=== PATIENT | male | born 1940 | race Caucasian/White ===

== ENCOUNTER 2019-03-11 05:25 | Inpatient (IN) | payer MEDICARE, OTHER, SELFPAY ==
--- NOTE | 2019-02-12 11:00 | HP.PCM_ITS ---
History and Physical DATE OF SURGERY: 03/11/2019 SCHEDULED PROCEDURE: Right anatomic shoulder arthroplasty versus reverse total shoulder arthroplasty HISTORY OF PRESENT ILLNESS: This is a 78-year-old male whose been having ongoing pain in his right shoulder for over one year. Patient has had multiple falls in the past. Pain can reach as high as an 8/10 with activity. Most of his pain is associated with overhead activity. He does get clicking sensation in the right shoulder with range of motion. He does notice weakness when compared to his other nondominant left shoulder. Pain is primarily over the anterior and lateral right shoulder. Pain does wake him at night. He is unable to lay on his right side. Patient has difficult time with activities of daily living including getting dressed and undressed due to the pain in the shoulder. Patient currently denies any chest pain, shortness of breath, fevers chills, recent infections. Patient has tried oral medications without significant relief in symptoms. After failing conservative measures and discussing treatment options with Dr. Cory Berg, the patient does wish to proceed with a right anatomic total shoulder arthroplasty versus reverse total shoulder arthroplasty. We are obtaining surgical clearance from patient's primary care physician. REVIEW OF SYSTEMS: ROS: Const: Reports change in appetite, hard of hearing and weight change. Denies fever. CV: Denies chest pain, heart murmur and irregular heartbeat. Resp: Denies cough, pneumonia, SOB, tuberculosis and wheezing. GI: Denies constipation, diarrhea, difficulty swallowing, heartburn, nausea, bloody stools and vomiting. : Urinary: denies incontinence. Musculo: Reports limp, trouble walking and weakness, but denies leg swelling. Skin: Denies Raynaud's, history of shingles and tattoo. Neuro: Denies ambulatory dysfunction, dizziness, numbness/tingling and tremor. Psych: Reports stress, but denies anxiety and insomnia. Chet/Lymph: Denies anemia, bleeding/bruising tendency and past transfusion. Reviewed, no changes. PAST MEDICAL HISTORY: Advance Care Plan: No Advance Directives Effective Date: 09/19/2018 PMH: Medical Problems: Arthritis, Hypercholesterolemia, Osteoporosis Accidents: None Surgical Hx: Spinal Lumbar Fusion - (2017) [facility] LT THR - (05/2017) Anesthesia Complications: None Assistive Devices: None Reviewed, no changes. 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 Personal Habits: Cigarette Use: Never Smoked Cigarettes.Alcohol: Denies use.Drug Use: Denies Use.Enjoy Exercising: Daily. Reviewed, no changes. VITALS: Ht: 65.5 Wt: 164lb Wt k.390 BMI: 26.9 BP: 124/78 Pulse: 68 Resp: 16 T: 98.2 T: 36.8C ALLERGIES: Tramadol MEDICATIONS: Atorvastatin Calcium 40 mg 1 by mouth every day, Naproxen 500 mg 1 by mouth twice a day as needed with food PRE-OP EXAM: General appearance:NORMAL Other: Eyes: Conjunctivae and lids: NORMAL Pupils: ERR Ears, Nose, Mouth, and Throat: NORMAL Other: Inspection of lips, teeth and gums: NORMAL Other: Neck: Examination of neck: no masses noted. Respiratory: Assessment of respiratory effort: NORMAL Other: Auscultation of lungs: clear to auscultation no wheezes, rhonchi or rales. Cardiovascular: Auscultation of heart: regular rate and rhythm, no murmurs, gallops or rubs. Gastrointestinal: Exam of abdomen: soft, nontender, nondistended bowel sounds present. PHYSICAL EXAMINATION: On exam patient's right shoulder scope to touch without erythema. There is tenderness to palpation diffusely over the lateral right shoulder. Mild pain over the a.c. joint. Range of motion: Active forward elevation 130 on the right and 150 on the left, internal rotation T7 on the left and L1 on the right, external rotation 25 on the right and 35 on the left. Patient does have scapular dyskinesia on the right. Good supraspinatus strength bilaterally. Sensation intact to light touch. Neurovascularly intact. IMAGING STUDIES: Previous x-rays of the right shoulder reveal complete loss of humeral joint spac e with inferior osteophytes on the humeral head and inferior glenoid with subchondral sclerosis, subchondral cyst formation consistent with severe glenohumeral osteoarthritis. IMPRESSION: 1. Severe right shoulder glenohumeral osteoarthritis 2. Hypercholesterolemia PLAN: Dr. Cory Berg did discuss and review with the patient all treatment options including surgical versus nonsurgical options. Patient does wish to proceed with the above-stated procedure. Potential risks, benefits, and complications of the procedure were discussed in detail including but not limited to , infection, nerve and blood vessel damage, persistent pain, numbness, tingling, paresthesias, blood clot, pulmonary embolism, and requirement for possible further surgery. The patient expressed full understanding and has no further questions for the doctor. Patient does agree to proceed with the above-stated procedure and has signed the surgery consent form. This dictation was created using voice recognition software. Phonetic and/or grammatical errors may exist.. ___ I have re-examined the patient. There are no clinical changes since date of exam. ___ See progress notes for changes. ___ Dictated on admission Date: Time: Signature:
[2019-02-25 11:15] VITALS: BP 129/84; PULSE 62; RESP 17; TEMP 36.7; O2SAT 96; BMI 26.6
--- NOTE | 2019-02-25 11:36 | SDCEKG_ITS ---
Test Reason : Blood Pressure : / mmHG Vent. Rate : 061 BPM Atrial Rate : 061 BPM P-R Int : 170 ms QRS Dur : 086 ms QT Int : 394 ms P-R-T Axes : 056 -44 010 degrees QTc Int : 396 ms Normal sinus rhythm Left axis deviation Abnormal ECG Confirmed by TOBY HEATON ([id number]), acquisitions editor JOSE COOLEY ([id number]) on 03/05/2019 9:27:37 AM Referred By: Cory Berg Confirmed By:TOBY HEATON
[2019-02-25 12:02] LABS: Absolute Lymphocyte Count 2.06 X10^3/ul (0.83-4.51); Absolute Neutrophil Count 4.4 X10^3/uL (2.0-7.7); Basophil# 0.02 X10^3/uL; Basophil% 0.3 % (0-1); Eosinophil# 0.15 X10^3/uL; Eosinophils% 2.1 % (0-5); Hematocrit 41.1 % (40-54); Hemoglobin 14.1 g/dl (13.0-16.5); Lymphocyte # 2.06 X10^3/ul (4.0); Lymphocyte % 28.5 % (19-41); Mean Corp Hgb Conc 34.3 g/gl (32-36); Mean Corpuscular Hgb 32.9 pg (27.0-32.0); Mean Platelet Vol. 9.4 fl (6.2-12.0); Monocyte% 8.3 % (0-10); Neutrophil # 4.39 X10^3/uL (2.7-7.7); Neutrophil % 60.5 % (47-70); POSITIVE COUNT NO; POSITIVE DIFFERENTIAL NO; POSITIVE MORPHOLOGY NO; Platelet Count 229 K/mm3 (150-450); RBC Distribution Width CV 13.8 % (11.6-14.6); RBC Distribution Width SD 46.9 fl (35.1-43.9); Red Blood Count 4.28 M/mm3 (4.6-6.2); White Blood Count 7.2 K/mm3 (4.4-11.0)
[2019-02-25 12:24] LABS: Anion Gap 5 (5-15); BUN 25 mg/dL (7-18); Calcium,Total 8.4 mg/dL (8.5-10.1); Chloride 110 mmol/L (98-107); Creatinine, Serum 0.96 mg/dL (0.70-1.30); EST Glomerular Filtration Rate 80 mL/min (>60); Est Glom Filt Rate - Afr Amer 97 mL/min (>60); Estimated Creatinine Clearance 58.33 ml/min; Glucose 84 mg/dL (74-106); Potassium 3.9 mmol/L (3.5-5.1); Sodium Level 142 mmol/L (136-145)
[2019-03-11] VITALS (11 sets, daily range): BP systolic 116–160; BP diastolic 57–103; PULSE 70–97; RESP 16–18; TEMP 35.8–36.8; O2SAT 94–99; BMI 26.6
[2019-03-11] MEDS: Celecoxib 200 MG Capsule 400 MG PO (06:01)
[2019-03-11] MEDS: oxyCODONE HCl Cr 10 MG Tablet PO (06:01)
[2019-03-11] MEDS: Acetaminophen 500 MG Tablet 1000 MG PO ×2 (06:02→21:15)
[2019-03-11] MEDS: Lactated Ringers 1,000 ML 999 ML IV ×2 (06:30→08:00)
--- NOTE | 2019-03-11 07:05 | RAD_ITS ---
STUDY: X-RAY - RIGHT SHOULDER REASON FOR EXAM: Male, 79 years old. Right shoulder replacement. TECHNIQUE: 3 view(s) of the shoulder. COMPARISON: None. FINDINGS: The patient is status post right shoulder replacement. There is good alignment. Normal acromioclavicular joint. Normal acromion. Normal humeral head and visualized proximal humerus. Postoperative soft tissue changes. Normal visualized pulmonary apex. RAD/Shoulder min 2 Views IMPRESSION: Status post right shoulder replacement. There is good alignment. Postoperative soft tissue changes. Electronically Signed: Emilinao Raza, at 13:11 EDT , Service support ,
[2019-03-11] MEDS: Cefazolin 2 GM in 0.9% Normal Saline 100 ML IV (07:13)
--- NOTE | 2019-03-11 08:49 | OP.PCM_ITS ---
Report of Operation Date of Procedure: 03/11/19 Pre-Operative Diagnosis: Right shoulder primary glenohumeral osteoarthritis Post-Operative Diagnosis: Right shoulder primary glenohumeral osteoarthritis, With severe posterior glenoid wear Surgery/Procedure Performed:: right reverse total shoulder replacement Description of Surgical Findings:: Stable shoulder. Patient had severe posterior glenoid wear due to the retroversion and posterior glenoid where we elected to proceed with a reverse total shoulder replacement electrical equipment assembler: Miguelito Astudillo Type of Anesthesia:: General Anesthesiologist: Gene Mijares Special Medications: 2 g Ancef, 1 g TXA at incision, 1 g TXA closure, 10 mg Decadron, joint cocktail (5 mg Duramorph, 30 mL of 0.5% Ropivicaine, 1000 units of epinephrine, 30 mg of Toradol, Vancomycin during the procedure Specimen's removed: Bony resection Estimated Blood Loss (mL): 175 Fluids Replaced: 1200 ml crystalloid Description of Procedure: Components used 1. Pardeep reunion glenoid baseplate 2. [place] reunion 32+6 mm Glenosphere 3. [place] reunion 32mm, 4mm humeral liner 4. [place] reunion reverse TSA humeral adapter tray 4mm 5. Pardeep reunion humeral stem primary press-fit 15mm size Brief history/Operative indications: 79 yo m with history of right shoulder pain and severe primary glenohumeral osteoarthritis with glenoid wear. Patient failed conservative measures as mentioned in the H&P. After discussion of risk and benefits of reverse total shoulder replacement including but not limited to blood loss, DVTs, PEs, nerve vessel damage, infection, general risk of anesthesia including loss of life, instability and stiffness patient demonstrating understanding wish to proceed was able to sign informed consent. Medical clearance was obtained. Preoperatively we discussed a anatomic total shoulder replacement versus reverse if rotator cuff was compromised or severe posterior glenoid wear Procedure: On the date of the procedure, patient's R upper extremity was marked in the preoperative area. Patient was taken back to the operating room where they were placed on the table in the supine position. Anesthesia assumed control of the C-spine and airway, then administered anesthetic. All bony prominences were identified well-padded, the head was secured and the patient was placed in the beachchair position at about 35? inclination. Anesthesia remained in control of the C-spine airway throughout the remainder of the procedure. Patient was then appropriately fastened to the table and the R upper extremity was prepped in a sterile fashion. The surgeons then scrubbed. Upon reentering the room, the R upper extremity was draped in a sterile fashion and the incision was marked out. Timeout was called, everyone agreed upon the side, the site, the procedure to be performed, patient identity and antibiotics given. Incision was taken down through skin and subcutaneous tissue, fat down to fascia. The stripe of the deltopectoral interval and cephalic vein were identified and blunt dissection was used to retract the deltoid. The cephalic vein was retracted laterally. Clavipectoral fascia was then incised and a cobra retractor was placed in the wound. The proximal one third of the pectoralis major insertion was released. Pectoralis tendon insertion was used to tenodesed the biceps tendon which was identified in the bicipital groove. Tenodesis was done with #1 Vicryl. Proximally we followed the biceps tendon after transecting it into the rotator interval. The rotator interval was split and the arm was externally rotated. The split was 1 cm medial to the bicipital groove. Short bscapularis tendon was released using a lesser tuberosity osteotomy. We released down the anterior portion of the humeral head and a weiner elevator was used to release the inferior portion of the humeral head. The arm was externally rotated and the shoulder was dislocated. The humeral head cutting guide was used to make humeral cut. This was done at anatomic retroversion. Once his humeral head cut was made humerus was retracted out of the way and the glenoid was exposed. After exposing the glenoid, the labrum and the remaining proximal biceps were debrided. At this time we are able to view the entire outer edge of the glenoid. A central pin was placed we sequentially reamed over this central pin to 32 mm. Once this was completed the central pedicle was drilled. The glenoid baseplate was impacted into place. Wound was closely irrigated out with normal saline we then drilled sequentially for 2 screws. Screws were placed superiorly and inferiorly and tightened down the screws. Once the screws were appropriately tightened into place the glenoid baseplate was compressed against the exposed subchondral bone. Locking caps were placed and a 32+6 mm glenosphere was impacted into place engaging the Oswald taper. The central screw was then tightened into place. Attention was then turned towards the humerus. The humerus was again externally rotated exposing the proximal portion of the humerus. Central canal finder was then used to open up the canal. We reamed to a 15mm reamer. We then broached to a 15mm stem. We trialed the 4mm liner, with the 4mm humeral baseplate. We obtained an adequate reduction at this time with a nice stable shoulder. Good internal rotation to the gluteus, forward elevation to 140?, external rotation to 20?. Final components were then assembled on the back table, trials were removed and the wound was copiously irrigated with normal saline after dislocating the shoulder. Once the final components were assembled they were impacted into place. Shoulder was then reduced and found to be stable with good range of motion. Subscapularis tendon was repaired using #2 FiberWire. The wound was then copiously irrigated out with a 1 L normal saline lavage. The deltopectoral fascia was then closed using #1 Vicryl skin was closed using 2-0 Vicryl interrupted sutures and final skin closure was done with 3-0 Monocryl. Steri-Strips are placed for final skin closure. Sterile dressing was placed patient was then placed in a sling and awakened by anesthesia. Patient was then transferred to the PACU for recovery. Postoperative plan: Patient will be admitted to the hospital overnight. They will get physical therapy starting in 2 weeks with normal postoperative regimen. Patient will be placed on aspirin daily for DVT prophylaxis. The first postoperative appointment will be in 2 weeks for wound check and initiation of phase 1 physical therapy. Grafts/Implants Used: [place] reunion reverse total shoulder - Complications No intraoperative complications - Admit VTE Documentation VTE Present on Admission: No VTE Mechan Device Prophylaxis: SCD's VTE Pharm Prophylaxis ordered?: Yes
[2019-03-11] MEDS: Lactated Ringers 1,000 ML 125 ML IV ×3 (09:00→20:19)
[2019-03-11] MEDS: Scopolamine 1mg/72hr Patch 1 PATCH TD (09:27)
[2019-03-11] MEDS: Ensure Surgery 237 ML LIQUID PO ×2 (12:00→18:30)
[2019-03-11] MEDS: Cefazolin 1 GM/50 ML BAG IV ×2 (14:18→23:52)
[2019-03-11] MEDS: Ondansetron 4 MG/2 ML Vial IV (14:21)
[2019-03-11] MEDS: Ketorolac 15 MG/ML Vial IV ×2 (14:21→20:48)
[2019-03-11] MEDS: oxyCODONE 5 MG Tablet 2.5 MG PO (20:48)
[2019-03-11] MEDS: Atorvastatin Calcium 40 MG Tablet PO (21:16)
[2019-03-11] MEDS: Senna/Docusate Sodium 1 Tablet 2 TABLET PO (21:16)
[2019-03-12 02:30] VITALS: BP 150/69; PULSE 87; RESP 18; TEMP 36.7; O2SAT 96
[2019-03-12] MEDS: oxyCODONE 5 MG Tablet 2.5 MG PO ×2 (02:50→09:58)
[2019-03-12] MEDS: Ketorolac 15 MG/ML Vial IV (02:51)
[2019-03-12] MEDS: Acetaminophen 500 MG Tablet 1000 MG PO (05:01)
--- NOTE | 2019-03-12 06:54 | PCM.PN.ORT ---
Subjective: Patient is doing well. No acute events overnight. Afebrile vital signs stable. Shoulder pain is under control. No numbness or tingling distally. Objective: Postop x-rays of the right shoulder show stable well-placed right reverse total shoulder replacement - Physical Exam General: Alert, Oriented x3, Cooperative Extremities: - - Right upper extremity: Incision is clean dry and intact. Sensations intact light touch axillary/R/M/U. Motor is intact R/M/E distally. Digits are warm and pink. Vital Signs Temp Pulse Resp BP Pulse Ox 98.1 F 87 18 150/69 H 96 03/12/19 02:30 03/12/19 02:30 03/12/19 02:30 03/12/19 02:30 03/12/19 02:30 Oxygen Flow Rate (L/min) 2 Oxygen Delivery Method Room Air Weight: 169 lb 15.622 oz Body Mass Index (BMI) 26.6 Intake and Output for Last 24 Hours 03/10/19 03/11/19 03/12/19 23:59 23:59 23:59 Intake Total 4311 / 4311 850 / 850 Output Total 1875 / 1875 700 / 700 Balance 2436 / 2436 150 / 150 Medical Necessity - Tobacco Use Smoking Status: Never smoker Assessment/Plan Postop day 1 right reverse total shoulder replacement 1. DVT prophylaxis: Aspirin daily 2. Physical therapy: Elbow wrist and finger range of motion today. ADL training and sling management today. We will begin physical therapy at 2-week postop visit formally for shoulder. 3. Pain control: Continue current regimen pain well controlled. 4. Disposition: Patient be discharged home today. [facility] Office:
--- NOTE | 2019-03-12 06:57 | PN.ORTHO_ITS ---
Subjective: Patient is doing well. No acute events overnight. Afebrile vital signs stable. Shoulder pain is under control. No numbness or tingling distally. Objective: Postop x-rays of the right shoulder show stable well-placed right reverse total shoulder replacement - Physical Exam General: Alert, Oriented x3, Cooperative Extremities: - - Right upper extremity: Incision is clean dry and intact. Sensations intact light touch axillary/R/M/U. Motor is intact R/M/E distally. Digits are warm and pink. Vital Signs Temp Pulse Resp BP Pulse Ox 98.1 F 87 18 150/69 H 96 03/12/19 02:30 03/12/19 02:30 03/12/19 02:30 03/12/19 02:30 03/12/19 02:30 Oxygen Flow Rate (L/min) 2 Oxygen Delivery Method Room Air Weight: 169 lb 15.622 oz Body Mass Index (BMI) 26.6 Intake and Output for Last 24 Hours 03/10/19 03/11/19 03/12/19 23:59 23:59 23:59 Intake Total 4311 / 4311 850 / 850 Output Total 1875 / 1875 700 / 700 Balance 2436 / 2436 150 / 150 Medical Necessity - Tobacco Use Smoking Status: Never smoker Assessment/Plan Postop day 1 right reverse total shoulder replacement 1. DVT prophylaxis: Aspirin daily 2. Physical therapy: Elbow wrist and finger range of motion today. ADL training and sling management today. We will begin physical therapy at 2-week postop visit formally for shoulder. 3. Pain control: Continue current regimen pain well controlled. 4. Disposition: Patient be discharged home today. [facility] Office:
--- NOTE | 2019-03-12 07:01 | DCINST_ITS ---
Discharge Diet: No Restrictions Discharge Activity: May Not Drive May shower in (days): 1 - Keep dressing clean dry and intact Ice area for (Minutes): 20 - Ice area for 20 minutes each hour while awake Weight Bearing Status: No weight bearing Keep extremity elevated above heart level: Operative Extremity Call your doctor if your incision/area has: Continuous Slow Oozing, Sudden Increased Bleeding, Increased Pain/ Swelling, Increased Redness, Foul Smelling Discharge Call your doctor if you observe: Fever of 101 or Higher, Coldness, Increased Pain, Numbness or Tingling, Change in Color Remove Dressing in (days):: 4 - 03/16/2019 Cleanse incision/area with: Keep Dressing Clean & Dry Additional Dressing/Incision Instructions:: If incision is clean dry and intact may leave the wound open to air and continue showering. If there is continued drainage continue daily dry dressing changes and keep incision clean dry and intact until there is no drainage. Allergies/Adverse Reactions: Allergies tramadol Allergy (Verified 02/25/19 11:10) Hives Medications to take at Discharge Atorvastatin Calcium [Lipitor] 40 mg PO QHS 02/25/19 Multivitamin [Multivitamins] 1 each PO DAILY 02/25/19 Naproxen 500 mg PO BID PRN PRN 02/25/19 Primary Care Physician: Daniel Kearney III, MD [Primary Care Provider] - Test Results: Test results from this visit will be discussed in further detail at your follow- up appointment, if applicable. Please Follow Up With: Donato Carrion PA-C When: 03/25/2019, 10:30 AM
[2019-03-12 07:29] LABS: Hematocrit 36.9 % (40-54); Hemoglobin 12.8 g/dl (13.0-16.5); Mean Corp Hgb Conc 34.7 g/gl (32-36); Mean Corpuscular Hgb 33.2 pg (27.0-32.0); Mean Corpuscular Volume 95.6 fL (80-94); Mean Platelet Vol. 9.9 fl (6.2-12.0); Platelet Count 217 K/mm3 (150-450); RBC Distribution Width CV 13.7 % (11.6-14.6); RBC Distribution Width SD 45.5 fl (35.1-43.9); Red Blood Count 3.86 M/mm3 (4.6-6.2); White Blood Count 16.5 K/mm3 (4.4-11.0)
[2019-03-12 07:30] LABS: Scan Indicated on CBC? Y/N NO
[2019-03-12] MEDS: Multivitamins,Therapeutic Tablet 1 TABLET PO (09:50)
[2019-03-12] MEDS: Senna/Docusate Sodium 1 Tablet 2 TABLET PO (09:50)
[2019-03-12] MEDS: Aspirin E.C. 81 MG Tablet PO (09:50)
[2019-03-12] MEDS: Famotidine 20 MG Tablet PO (09:51)
[2019-03-12] MEDS: Ensure Surgery 237 ML LIQUID PO (10:01)
--- NOTE | 2019-03-12 10:05 | CASEMGMT ---
RN CM Face to Face with patient for initial transition planning/care coordination assessment. RN CM introduced self and role at [facility]. Patient sitting in chair, alert and oriented, daughter at bedside. Patient willing to participate in assessment and is able to answer all questions appropriately. Care providers, pharmacy, and demographics verified. Patient wishes to discharge home, denies need for home health at this time. Patient states he has no further needs or concerns at this time. CM to follow for discharge planning needs that may arise. PCP: [facility] Specialists: [facility] Pharmacy: [facility] Insurance: [email or web address] Prescription Benefit: Yes Living Will/HPOA: none, requested additional information, [place] updated LNOK: , daughter Living Arrangements: Patient lives with in single story home with 2 steps with railing. Transportation: Daughter DME/HHC: Patient states he has shower chair and toilet seat riser. Patient denies additional needs at this time. Disposition Plan: Patient to discharge home with family support and follow-up plans in place. Wendi ROJAS, RN, CM
[2019-03-12 10:33] VITALS: BP 104/61; PULSE 67; RESP 18; TEMP 36.6; O2SAT 95
--- NOTE | 2019-03-12 10:36 | CASEMGMT ---
Pt requested additional information in regard to LW/POA. SW met pt and daughter, spoke w/them about completing LW/POA. Pt is interested in completing POA, but is not certain about LW. SW explained that SW can assist here a little later, or he and can both set up an appointment to come back and complete the documents. Pt would like to make an appointment and return to complete the documents. SW gave pt's daughter two sets of LW/POA forms w/number to SW dept to make an appt. SW explained that having a conversation about wishes with the POA is most important as well. Pt and daughter state understanding. No further needs, pt home today. LEYLA Novak
== END 2019-03-12 10:48 | disposition home or self-care (01) | DRG 483 ==
LOC: ACINP 05:26 → MS3 10:36
PROVIDERS: Admitting Provider Specialist; Family Provider Family Medicine; PCP Family Medicine; Referring Provider Specialist; Visit Provider Specialist
PROC: 0RRJ00Z Replacement of Right Shoulder Joint with Reverse Ball and Socket Synthetic Substitute, Open Approach (ICD-10-PCS; CPT 23472; principal; 2019-03-11 06:45)
DX: M19.011 Primary osteoarthritis, right shoulder (principal); R29.6 Repeated falls; E78.00 Pure hypercholesterolemia, unspecified
CPT/HCPCS: 36415; 73030; 80048; 85025; 85027; 87081; 93005; 97166; 97530; 97535; 99251; C1776; J7050; J7120; A4216; G0463; J2405

== ENCOUNTER 2019-05-13 10:53 | Observation (INO) | payer MEDICARE, OTHER, SELFPAY ==
[2019-03-11 10:45] VITALS: BMI 26.6
[2019-05-13] VITALS (10 sets, daily range): BP systolic 130–172; BP diastolic 68–94; PULSE 67–85; RESP 15–18; TEMP 36.6–36.8; O2SAT 95–100; BMI 27.0; BMI 24.9
--- NOTE | 2019-05-13 10:56 | RAD_ITS ---
STUDY: X-RAY CHEST REASON FOR EXAM: Male, 79 years old. Chest pressure. Lightheadedness. TECHNIQUE: Single AP portable view of the chest. COMPARISON: None. FINDINGS: EKG electrodes are seen. Hyperinflation. Minimal increased markings at the left lung base suggestive of linear atelectasis and/or scarring. There is no demonstrated pleural abnormality. Normal size heart. Normal mediastinum and janelle. Normal visualized pulmonary arteries. There is atherosclerotic calcification of the aortic arch with tortuosity. There are diffuse degenerative changes of the visualized thoracic spine. The patient is status post right reverse shoulder replacement. Degenerative changes of the left shoulder joint. There is no demonstrated abnormality of the visualized soft tissue structures of the upper abdomen. RAD/Chest 1 View (Portable) IMPRESSION: Mild increased markings at the left lung base suggestive of linear atelectasis and/or scarring. Electronically Signed: Emiliano Raza, at 11:27 EDT , Service support ,
--- NOTE | 2019-05-13 10:56 | EKG12_ITS ---
Test Reason : CP Blood Pressure : / mmHG Vent. Rate : 081 BPM Atrial Rate : 081 BPM P-R Int : 174 ms QRS Dur : 084 ms QT Int : 384 ms P-R-T Axes : 064 -46 042 degrees QTc Int : 446 ms Sinus rhythm with frequent and consecutive Premature ventricular complexes Left axis deviation Abnormal ECG Confirmed by TOBY HEATON ([id number]), commissioning editor JOSE COOLEY ([id number]) on 05/18/2019 2:15:05 PM Referred By: Dena Reyes Confirmed By:TOBY HEATON
[2019-05-13] MEDS: Aspirin 81 MG TAB.CHEW 324 MG PO (11:07)
--- NOTE | 2019-05-13 11:12 | ED.VISSUMM ---
- ER Visit Summary Date of Service: 05/13/19 Chief Complaint: Midsternal chest pressure History of Present Illness: The patient is a 79 M history of high cholesterol. No cardiac history. No history of DVT or PE. He had right shoulder surgery done on March 11. He has been doing well since that time. He has had no recent exertional chest pain or exertional dyspnea. He has no known cardiac history nor is he ever had a heart catheterization and does not believe he is ever had a stress test. Patient is very active. Today when he is doing his physical therapy at the orthopedic office he said he got a pressure heaviness to the midsternal area of his chest. [place] like he might pass out felt lightheaded. He said they were having trouble getting his blood pressure at that time and he was having palpitations. The pain is since gone away. He denied any dyspnea. No leg swelling. No hemoptysis. It was not pleuritic. Physical Examination: Older male vital signs are stable. His blood pressure is 172/94. Pulse ox 98% on room air no signs of hypoxia. On the monitor he is occasional PVC. HEENT unremarkable. Neck nontender. Lungs clear to auscultation bilaterally. Chest wall nontender. Heart regular rate and rhythm occasional PVC no murmur. Abdomen soft and nontender. Normal bowel sounds no peritoneal signs. Patient moving all 4 extremities. Neurovascular intact. Is equal symmetrical radial pulses. Calves are nontender without edema or cords. Neurologically is awake and alert with no focal motor deficits. Skin is unremarkable. Test Results: CBC normal white count 9. Hemoglobin 14. Chemistries normal. BUN 29 creatinine 1. Troponin normal. Initial EKG sinus rhythm rate 81 with occasional PVCs but no ischemia or NV. Chest x-ray normal cardiac silhouette. Chronic changes. Right shoulder prosthesis but no acute process. Read by myself the radiologist. Emergency Department Course and Treatment: Patient will undergo cardiac work-up. Currently is pain-free. He will receive p.o. aspirin. This is concerning due to the fact that it was exertional. And most likely will need to be admitted for further evaluation and stress testing Treatment Plan: Repeat exam at 11:43 AM patient is doing well. He remains pain-free. Due to this being exertional chest pain and nonreproducible I do think he needs admission and further evaluation possible stress testing. I discussed that with both he and his daughter are comfortable with the plan I have the hospitalist on page. Disposition: Admission Impression: Acute exertional chest pain of uncertain etiology This note was generated with Telik dictation software. It may contain incorrect words, spelling, and punctuation that were not noted in review of the chart prior to signing ED Disposition - Plan for ED Patient: Referrals: Daniel Kearney III, MD [Primary Care Provider] -
[2019-05-13 11:19] LABS: Absolute Lymphocyte Count 1.14 X10^3/uL (0.83-4.51); Absolute Neutrophil Count 7.8 X10^3/uL (2.0-7.7); Basophil# 0.02 X10^3/uL; Basophil% 0.2 % (0-1); Hematocrit 40.8 % (40-54); Hemoglobin 14.1 g/dL (13.0-16.5); Lymphocyte # 1.14 X10^3/ul (4.0); Lymphocyte % 11.7 % (19-41); Mean Corp Hgb Conc 34.6 g/dL (32-36); Mean Corpuscular Hgb 33.8 pg (27.0-32.0); Mean Corpuscular Volume 97.8 fL (80-94); Mean Platelet Vol. 10.2 fl (6.2-12.0); Monocyte% 6.2 % (0-10); NRBC Flagged by Analyzer 0 % (0-5); Neutrophil # 7.82 X10^3/uL (2.7-7.7); Neutrophil % 80.2 % (47-70); Platelet Count 224 K/mm3 (150-450); RBC Distribution Width CV 13.6 % (11.6-14.6); Red Blood Count 4.17 M/mm3 (4.6-6.2); White Blood Count 9.8 K/mm3 (4.4-11.0)
[2019-05-13 11:40] LABS: Anion Gap 4 (5-15); BUN 29 mg/dL (7-18); BUN/Creat Ratio 26.6 RATIO (10-20); Calcium,Total 8.7 mg/dL (8.5-10.1); Chloride 108 mmol/L (98-107); Creatinine, Serum 1.09 mg/dL (0.70-1.30); EST Glomerular Filtration Rate 69 mL/min (>60); Est Glom Filt Rate - Afr Amer 84 mL/min (>60); Estimated Creatinine Clearance 52.29 ml/min; Glucose 110 mg/dL (74-106); Potassium 4.5 mmol/L (3.5-5.1); Sodium Level 138 mmol/L (136-145)
--- NOTE | 2019-05-13 11:58 | PCM.HP.STD ---
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 Patient was in his usual state of health until today was working with physical therapy he started having central pressure-like chest pain associated with lightheadedness and a feeling of passing out. Denied any diaphoresis or nausea or vomiting. He states that his blood pressure was said to be readable all very low subsequently. He felt better when he lies down. Vitals in the ED showed temperature 97.9 F, heart rate 79, blood pressure 172/94, respiratory rate 18, SPO2 is 90% on room air. Admitting blood work showed a BC count of 9.8, hemoglobin 14.1, platelet count of 224, sodium 138, potassium 4.5, chloride 108, bicarbonate 26, BUN 29, creatinine 1.09, troponin 0 0.015 Admitting EKG shows normal sinus rhythm, PVCs. His chest x-ray showed atelectasis in the left lung base. Past Medical History Past Medical History (Chronic Problems): Chronic Problems BPH (benign prostatic hyperplasia) (Chronic) H/O shoulder replacement (Chronic) Allergies tramadol Allergy (Verified 05/13/19 11:12) Hives Home Medications: Ambulatory Orders Medication Instructions Recorded Atorvastatin Calcium [Lipitor] 40 mg PO QHS 02/25/19 Multivitamin [Multivitamins] 1 each PO DAILY 02/25/19 Acetaminophen [Tylenol] 1,000 mg PO Q8 #90 tablet 03/12/19 Famotidine [Pepcid] 20 mg PO DAILY #30 tablet 03/12/19 Tamsulosin HCl 0.4 mg PO QHS 05/13/19 Surgical History: - - History of spinal surgery, history of hip replacement, history of right shoulder arthroplasties Psychiatric History: No pertinent psych hx Lives: Spouse/ Significant Other, With Family Smoking Status: Never smoker Tobacco Use: Non-smoker Alcohol: None Drugs: None - *Family History Maternal History Items: No pertinent history Paternal History Items: Diabetes Sibling History Items: Cancer - Lung CA Review of Systems Constitutional: Denies: Anorexia, Chills, Fever, Malaise, Weakness, Weight Change, Fatigue Eyes: Denies: Blurred vision, Cataracts, Conjunctivae Inflammation, Pain, Redness, Vision Change HEENT: Denies: Difficulty Hearing, Difficulty Swallowing, Head Aches, Hearing Changes, Nasal bleeding, Sinus Congestion, Sinus Drainage Cardiovascular: Reports: Chest Pain, Chest Pressure, Chest Tightness, Light Headedness. Denies: Orthopnea, Palpitations, Paroxysmal Noc. Dyspnea Respiratory: Denies: Cough, Shortness of breath at rest, Shortness of breath upon exertion, Sputum production Gastrointestinal: Denies: Abdominal Pain, Constipation, Dyspepsia, Hematemesis, Hematochezia, Nausea, Vomiting Genitourinary: Denies: Dysuria, Frequency, Incontinence Musculoskeletal: Denies: Joint Pain, Joint stiffness, Joint swelling, Joint Tenderness Skin: Denies: Rash, Wounds Neurological: Denies: Numbness, Tingling, Focal weakness Psychiatric: Denies: Anxiety, Depression, Homicidal Ideations, Suicidal Ideations Hematologic/ Lymphatic: Denies: Easy Bruising, Easy Bleeding VTE Information - Inpt Only VTE Present on Admission: No VTE Pharm Prophylaxis ordered?: Yes Patient Problems: Active and Suspected Problems Chest pain (Acute) - Physical Exam General: Alert, Oriented x3, Cooperative, No apparent distress HEENT: Atraumatic, PERRLA, EOMI, Normocephalic Oral: Moist Mucosa Neck: Supple Lungs: Clear to auscultation, Normal air movement Cardiovascular: Regular rate, Regular Rhythm, Normal S1, Normal S2, No murmurs Abdomen: Bowel Sounds Present, Soft, Non Tender, Non-Distended, No Hepato-splenomegaly Extremities: No edema Skin: No rashes, No breakdown Musculoskeletal: No Tenderness to Palpation of Joints or Extremities Lymphatic: No Cervical, Supraclavicular, or Inguinal Adenopathy Neurological: Cranial nerves II-XII grossly intact, Neuro grossly intact Psych/Mental Status: Normal Affect, Appropriate Vital Signs Temp Pulse Resp BP Pulse Ox 97.9 F 79 15 172/94 H 100 05/13/19 10:53 05/13/19 10:53 05/13/19 10:53 05/13/19 10:53 05/13/19 11:07 Oxygen Delivery Method Room Air Weight: 80.7 kg Body Mass Index (BMI) 27.0 Laboratory Tests Past 24 Hrs 05/13/19 05/13/19 11:00 11:00 WBC 9.8 RBC 4.17 L Hgb 14.1 Hct 40.8 MCV 97.8 H MCH 33.8 H MCHC 34.6 RDW Std Deviation 49.0 H RDW Coeff of [place]az 13.6 Plt Count 224 MPV 10.2 Immature Gran % (Auto) 0.700 Neut % (Auto) 80.2 H Lymph % (Auto) 11.7 L [place]abella % (Auto) 6.2 Eos % (Auto) 1.0 Baso % (Auto) 0.2 Absolute Neuts (auto) 7.8 H Absolute Lymphs (auto) 1.14 Nucleated RBC % 0 Sodium 138 Potassium 4.5 Chloride 108 H Carbon Dioxide 26.0 Anion Gap 4 L BUN 29 H Creatinine 1.09 Estim Creat Clear Calc 52.29 Est GFR (MDRD) Af Amer 84 Est GFR (MDRD) Non-Af 69 BUN/Creatinine Ratio 26.6 H Glucose 110 H Calcium 8.7 Troponin I < 0.015 Assessment/Plan All Active Problems Chest pain (Acute) 79 year old M with past medical history of hyperlipidemia, who recently had a reverse right shoulder arthroplasty done comes in with complaints of chest pressure that started while in outpatient physical therapy. 1. Chest pain, atypical, concerning for angina, EKG shows no acute ST-T changes, troponin x1 is negative Plan: Admit to PCU, continue monitoring on telemetry, trend troponins, 2D echo, exercise nuclear stress test in a.m., aspirin 81 mg p.o. daily, lipid profile in a.m. 2. Hyperlipidemia, on statin 3. Recent right shoulder reverse arthroplasty, will follow up with outpatient therapy on discharge 4. BPH on Flomax 5. DVT prophylaxis with heparin subcu Code Visit OBSV E&M: 27434 Initial observation care L3
[2019-05-13 13:28] LABS: Hemoglobin A1c 5.5 % (4.2-6.3)
--- NOTE | 2019-05-13 13:28 | ECHOD_ITS ---
Reason For Study: CP Procedure This was a 2D Doppler, Color Flow transthoracic echocardiogram. Exam performed portable in patient room. Left Ventricle Normal size and thickness. The estimated ejection fraction is 65 %. Stage 1 diastolic dysfunction. No regional wall motion abnormalities noted. Right Ventricle Normal size and thickness. Normal systolic function. Atria Normal left atrium. Normal right atrium. Normal atrial septum. Mitral Valve The mitral valve is structurally normal. No prolapse or stenosis seen. Trivial mitral valve insufficiency. Tricuspid Valve Normal tricuspid valve. Trivial tricuspid valve insufficiency. Right ventricular systolic pressure estimated to be 33 mmHg. Aortic Valve Normal aortic valve. Trisinus/trileaflet aortic valve. Pulmonic Valve Normal pulmonic valve. Great Vessels Normal aortic root. Normal arch. Normal inferior vena cava. Inferior vena cava collapse with sniff. Pericardium/Pleural No pericardial effusion. MMode/2D Measurements & Calculations LVIDd: 4.7 cm IVSd: 1.1 cm LA dimension: 2.8 cm LVIDs: 2.8 cm LVPWd: 1.0 cm FS: 40.8 % LAV(MOD-bp): 54.9 ml LA A4 area: 17.8 cm2 RA A4 area: 16.7 cm2 LAV(MOD-bp) Indexed: 29.2 ml/m2 LAV(MOD-sp2): 51.2 ml LAV(MOD-sp4): 50.2 ml Time Measurements MV dec time: 0.22 sec Doppler Measurements & Calculations MV E max sunil: 59.4 cm/sec Lat Peak E' Sunil: 6.7 cm/sec Med Peak E' Sunil: 8.6 cm/sec MV A max sunil: 103.7 cm/sec E/E' lat: 8.9 E/E' med: 6.9 MV E/A: 0.57 MV V2 max: 117.8 cm/sec MV P1/2t max sunil: 80.8 cm/sec Ao V2 max: 145.4 cm/sec MV max P.5 mmHg MV P1/2t: 102.9 msec Ao max P.5 mmHg MV V2 mean: 62.3 cm/sec MV dec slope: 230.0 cm/sec2 Ao V2 mean: 91.9 cm/sec MV mean P.9 mmHg MVA(P1/2t): 2.1 cm2 Ao mean P.9 mmHg MV V2 VTI: 29.4 cm Ao V2 VTI: 26.8 cm LV V1 max: 96.8 cm/sec PA V2 max: 94.2 cm/sec TR max sunil: 251.7 cm/sec LV V1 max P.7 mmHg TR max P.4 mmHg LV V1 mean P.9 mmHg LV V1 mean: 62.6 cm/sec LV V1 VTI: 19.3 cm Interpretation Summary The estimated ejection fraction is 65 %. Stage 1 diastolic dysfunction. Trivial mitral valve insufficiency. Trivial tricuspid valve insufficiency. Right ventricular systolic pressure estimated to be 33 mmHg. There is no comparison study available. Ordering Physician: Dena Reyes Referring Physician: ALISSA Kearney M.D. Performed By: Brodwolf, Dwayne, RCS
--- NOTE | 2019-05-13 13:33 | EKG12_ITS ---
Test Reason : CP ADMISSION Blood Pressure : / mmHG Vent. Rate : 074 BPM Atrial Rate : 074 BPM P-R Int : 172 ms QRS Dur : 084 ms QT Int : 392 ms P-R-T Axes : 047 -44 016 degrees QTc Int : 435 ms Sinus rhythm with occasional Premature ventricular complexes Left axis deviation Abnormal ECG Confirmed by BRYANT THOMASON, SADA ([id number]), market editor PETE RASMUSSEN ([id number] on 05/15/2019 9:19:48 AM Referred By: Dena Reyes Confirmed By:SADA HURTADO MD
--- NOTE | 2019-05-13 14:08 | CASEMGMT ---
Per RN patient was asking about advance directives. SW met with patient. Introduced self as well as role at [facility]. He asked if SW could leave the documents with him and he will look over them. SW left the documents, explained them to him, and told him that if he has any questions he could ask for SW. Mandy BERNAL
[2019-05-13 14:20] LABS: Magnesium 2.1 mg/dL (1.6-2.6)
[2019-05-13] MEDS: Heparin Injection (Vial) 5,000 UNIT/ML VIAL 5000 UNIT SC ×2 (15:19→21:07)
[2019-05-13] MEDS: Atorvastatin Calcium 40 MG Tablet PO (21:07)
[2019-05-13] MEDS: Tamsulosin HCl 0.4 MG Capsule PO (21:07)
[2019-05-14 02:58] VITALS: PULSE 83
[2019-05-14 03:05] VITALS: BP 120/70; PULSE 73; RESP 16; TEMP 36.7; O2SAT 96
[2019-05-14 05:42] VITALS: BP 123/81; PULSE 83; RESP 16; TEMP 36.8; O2SAT 95
[2019-05-14] MEDS: Aspirin E.C. 81 MG Tablet PO (05:44)
[2019-05-14] MEDS: Acetaminophen 500 MG Tablet 1000 MG PO (05:45)
[2019-05-14] MEDS: Famotidine 20 MG Tablet PO (05:45)
--- NOTE | 2019-05-14 05:55 | EKG12_ITS ---
Test Reason : AM EKG Blood Pressure : / mmHG Vent. Rate : 081 BPM Atrial Rate : 081 BPM P-R Int : 168 ms QRS Dur : 084 ms QT Int : 406 ms P-R-T Axes : 065 -50 040 degrees QTc Int : 471 ms Sinus rhythm with frequent Premature ventricular complexes Left anterior fascicular block Abnormal ECG Confirmed by BRYANT THOMASON, SADA ([id number]), telegraph editor PETE RASMUSSEN ([id number] on 05/15/2019 9:02:31 AM Referred By: Dena Reyes Confirmed By:SADA HURTADO MD
[2019-05-14 06:25] LABS: Cholesterol 125 mg/dL (200); High Density Lipoprotein 52 mg/dL; Triglycerides 83 mg/dL; Very Low Density Lipoprotein 17 mg/dL (5-40)
[2019-05-14 06:31] VITALS: PULSE 80
[2019-05-14 09:12] VITALS: BP 117/64; PULSE 74; RESP 18; TEMP 36.8; O2SAT 98
[2019-05-14] MEDS: Multivitamins,Therapeutic Tablet 1 TABLET PO (09:14)
--- NOTE | 2019-05-14 09:45 | STRESSREP ---
Stress Test Report Date: 05-14-19 Procedure: Exercise tolerance test/imaging study Indications: Chest pain Consent: Per the patient Procedure: The patient exercised on a Agapito protocol for 6 minutes completing Stage II achieving a peak heart rate of 136 bpm (97 % predicted maximal heart rate) with a peak blood pressure 172/70 mmHg and a peak MET capacity of 7 METs. The baseline ECG demonstrated normal sinus rhythm; poor R wave progression. The peak exercise ECG demonstrated somatic/motion artifact with no obvious ECG changes. There were occasional PVCs pretest, during exercise, in recovery and a rare ventricular couplet during recovery. The functional capacity was considered good. There was [no complaint of chest discomfort during exercise or recovery]. The examination was discontinued secondary to dyspnea. Impression: 1. Technically adequate (percent predicted maximal heart rate greater than 85%) exercise tolerance test 2. Peak exercise ECG with somatic/motion artifact with no obvious ECG changes 3. There were occasional PVCs pretest, during exercise, in recovery and a rare ventricular couplet during recovery 4. Nuclear images pending Myocardial perfusion imaging study: Technique: The patient was injected with 11.0 mCi of technetium 99m Cardiolite and subsequently rest SPECT Cardiolite nuclear imaging was obtained in the horizontal long, vertical long, and short axis views. The patient exercised on a Agapito protocol for 6 minutes completing Stage II achieving a peak heart rate of 136 bpm (97 % predicted maximal heart rate) with a peak blood pressure 172/70 mmHg and a peak MET capacity of 7 METs. The patient was injected with 36.0 mCi of technetium 99m Cardiolite and subsequently stress SPECT Cardiolite nuclear imaging was obtained in the horizontal long, vertical long, and short axis views. A gated Cardiolite study at peak stress was not obtained. Interpretation: Rest and stress SPECT Cardiolite nuclear imaging status post realignment, normalization, and attenuation correction, demonstrates [the appearance of relative uniform tracer uptake and myocardial perfusion appearing within normal limits]. The gated Cardiolite study at peak stress was not obtained. Impression: 1. Rest and stress SPECT Cardiolite nuclear imaging demonstrate [relative uniform tracer uptake and myocardial perfusion appearing within normal limits]. 2. Gated Cardiolite study at peak stress was not obtained. This note was generated with Accept Softwareation software. It may contain incorrect words, spelling, and punctuation that were not noted in checking the note before signing.
--- NOTE | 2019-05-14 10:13 | DCINST_ITS ---
- Discharge Diagnoses Current Active Problems: Current Active and Chronic Problems Chest pain (Acute) BPH (benign prostatic hyperplasia) (Chronic) H/O shoulder replacement (Chronic) Reason(s) for Visit for Discharge Instructions: Chest pain You will use the following diet at home:: Cardiac Your food should be the consistency of: Regular Your liquids should be the consistency of: Regular/Thin Discharge Activity: Return to Normal Activity Allergies/Adverse Reactions: Allergies tramadol Allergy (Verified 05/13/19 11:12) Hives Medications to take at Discharge Atorvastatin Calcium [Lipitor] 40 mg PO QHS 02/25/19 Multivitamin [Multivitamins] 1 each PO DAILY 02/25/19 Acetaminophen [Tylenol] 1,000 mg PO Q8 #90 tablet 03/12/19 Famotidine [Pepcid] 20 mg PO DAILY #30 tablet 03/12/19 Tamsulosin HCl 0.4 mg PO QHS 05/13/19 Primary Care Physician: aDniel Kearney III, MD [Primary Care Provider] - Please follow up with your Primary Care Physician in: within 2 weeks Test Results: Test results from this visit will be discussed in further detail at your follow- up appointment, if applicable. Please Follow Up With: Donal Hammond MD When: within 2 weeks Proposed Discharge Date: 05/14/19
--- NOTE | 2019-05-14 10:39 | DS.PCM_ITS ---
Discharge Date and Diagnosis Date of Admission: 05/13/19 Date of Discharge: 05/14/19 - Primary Discharge Diagnosis Active and Suspected Problems Chest pain (Acute) - Secondary Discharge Diagnosis Chronic Problems BPH (benign prostatic hyperplasia) (Chronic) H/O shoulder replacement (Chronic) Hospital Course and Treatment Imaging Results: 05/14/19 05:55 Nuclear Stress Test - Treadmil [NM] AM (NON MEDS) Clinical Impression(s) from Imaging Studies Chest X-Ray 05/13/19 10:56 IMPRESSION: Mild increased markings at the left lung base suggestive of linear atelectasis and/or scarring. Electronically Signed: Emiliano Raza, at 11:27 EDT , Service support , None Operations: None Procedures: 2-D Echocardiogram, Stress test Summary of Care Provided: 79 year old M with past medical history of hyperlipidemia, who recently had a reverse right shoulder arthroplasty done comes in with complaints of chest pressure that started while in outpatient physical therapy. Patient was admitted to the telemetry floor, his initial troponin was negative, EKG showed no acute ST-T changes. He had 2D echo done that was unremarkable. His troponins x3 were negative. He underwent nuclear stress test that was negative for acute ischemia. He was discharged to follow-up with his primary care doctor and with cardiology within 2 weeks. Subjective: The day of discharge, patient was seen and examined. He denied any more chest pain. Review of systems was negative. Objective: Physical Exam General: Alert, Oriented x3, Cooperative, No apparent distress HEENT: Atraumatic, PERRLA, EOMI, Normocephalic Oral: Moist Mucosa Neck: Supple Lungs: Clear to auscultation, Normal air movement Cardiovascular: Regular rate, Regular Rhythm, Normal S1, Normal S2, No murmurs Abdomen: Bowel Sounds Present, Soft, Non Tender, Non-Distended, No Hepato- splenomegaly Extremities: No edema Skin: No rashes, No breakdown Musculoskeletal: No Tenderness to Palpation of Joints or Extremities Lymphatic: No Cervical, Supraclavicular, or Inguinal Adenopathy Neurological: Cranial nerves II-XII grossly intact, Neuro grossly intact Psych/Mental Status: Normal Affect, Appropriate - Physical Exam Vital Signs Temp Pulse Resp BP Pulse Ox 98.2 F 74 18 117/64 98 05/14/19 09:12 05/14/19 09:12 05/14/19 09:12 05/14/19 09:12 05/14/19 09:12 Oxygen Delivery Method Room Air Weight: 74.4 kg Body Mass Index (BMI) 24.9 Intake and Output for Last 24 Hours 05/12/19 05/13/19 05/14/19 23:59 23:59 23:59 Intake Total 740 / 740 0 / 0 Balance 740 / 740 0 / 0 Laboratory Tests Past 24 Hrs 05/13/19 05/13/19 05/13/19 11:00 11:00 11:00 WBC 9.8 RBC 4.17 L Hgb 14.1 Hct 40.8 MCV 97.8 H MCH 33.8 H MCHC 34.6 RDW Std Deviation 49.0 H RDW Coeff of [place] 13.6 Plt Count 224 MPV 10.2 Immature Gran % (Auto) 0.700 Neut % (Auto) 80.2 H Lymph % (Auto) 11.7 L [place] % (Auto) 6.2 Eos % (Auto) 1.0 Baso % (Auto) 0.2 Absolute Neuts (auto) 7.8 H Absolute Lymphs (auto) 1.14 Nucleated RBC % 0 Sodium 138 Potassium 4.5 Chloride 108 H Carbon Dioxide 26.0 Anion Gap 4 L BUN 29 H Creatinine 1.09 Estim Creat Clear Calc 52.29 Est GFR (MDRD) Af Amer 84 Est GFR (MDRD) Non-Af 69 BUN/Creatinine Ratio 26.6 H Glucose 110 H Hemoglobin A1c 5.5 Calcium 8.7 Magnesium Troponin I < 0.015 Triglycerides Cholesterol LDL Cholesterol VLDL Cholesterol HDL Cholesterol 05/13/19 05/13/19 05/13/19 13:46 13:52 17:15 WBC RBC Hgb Hct MCV MCH MCHC RDW Std Deviation RDW Coeff of [place] Plt Count MPV Immature Gran % (Auto) Neut % (Auto) Lymph % (Auto) [place] % (Auto) Eos % (Auto) Baso % (Auto) Absolute Neuts (auto) Absolute Lymphs (auto) Nucleated RBC % Sodium Potassium Chloride Carbon Dioxide Anion Gap BUN Creatinine Estim Creat Clear Calc Est GFR (MDRD) Af Amer Est GFR (MDRD) Non-Af BUN/Creatinine Ratio Glucose Hemoglobin A1c Calcium Magnesium 2.1 Troponin I < 0.015 < 0.015 Triglycerides Cholesterol LDL Cholesterol VLDL Cholesterol HDL Cholesterol 05/14/19 05:00 WBC RBC Hgb Hct MCV MCH MCHC RDW Std Deviation RDW Coeff of [place] Plt Count MPV Immature Gran % (Auto) Neut % (Auto) Lymph % (Auto) [place] % (Auto) Eos % (Auto) Baso % (Auto) Absolute Neuts (auto) Absolute Lymphs (auto) Nucleated RBC % Sodium Potassium Chloride Carbon Dioxide Anion Gap BUN Creatinine Estim Creat Clear Calc Est GFR (MDRD) Af Amer Est GFR (MDRD) Non-Af BUN/Creatinine Ratio Glucose Hemoglobin A1c Calcium Magnesium Troponin I Triglycerides 83 Cholesterol 125 LDL Cholesterol 56 VLDL Cholesterol 17 HDL Cholesterol 52 Discharge Diet: Low fat/ Low Cholesterol, 2000 mg Sodium Diet Discharge Activity: Return to Normal Activity Home Medications: Medications to take at Discharge Atorvastatin Calcium [Lipitor] 40 mg PO QHS 02/25/19 Multivitamin [Multivitamins] 1 each PO DAILY 02/25/19 Acetaminophen [Tylenol] 1,000 mg PO Q8 #90 tablet 03/12/19 Famotidine [Pepcid] 20 mg PO DAILY #30 tablet 03/12/19 Tamsulosin HCl 0.4 mg PO QHS 05/13/19 Primary Care Physician: Daniel Kearney III, MD [Primary Care Provider] - Please follow up with your Primary Care Physician in: within 2 weeks Please Follow Up With: Donal Hammond MD When: within 2 weeks Disposition: Home Minutes spent on discharge:: 40 Patient Condition:: Stable Medical Necessity - Tobacco Use Smoking Status: Never smoker Tobacco Use: Non-smoker Meaningful Use Info Meaningful Use Diagnoses (Choose all that apply): None applicable Code Visit OBSV E&M: 35489 Observation care discharge
== END 2019-05-14 10:11 | disposition home or self-care (01) ==
LOC: ED 11:39 → PCU 12:27
PROVIDERS: Admitting Provider Internal Medicine; Emergency Provider Emergency Medicine; Family Provider Family Medicine; PCP Family Medicine; Referring Provider Internal Medicine; Visit Provider Internal Medicine
DX: R07.89 Other chest pain (principal); R42 Dizziness and giddiness; N40.0 Benign prostatic hyperplasia without lower urinary tract symptoms; E78.5 Hyperlipidemia, unspecified; Z79.899 Other long term (current) drug therapy
CPT/HCPCS: 36415; 71045; 78452; 80048; 80061; 83036; 83735; 84484; 85025; 93005; 93017; 93306; 96372; 99218; 99285; A9500; Q9957; A4216; G0378

== ENCOUNTER 2019-06-03 08:50 | Day surgery (SDC) | payer MEDICARE, OTHER, SELFPAY ==
--- NOTE | 2019-05-26 03:39 | HP_ITS ---
HPI HPI History of Present Illness Surgical H&P: Yes Details: Mr. Serna is a very pleasant 79-year-old nondiabetic, non-smoking gentleman with a history of hyper BPH, who was recently admitted to [facility] on 05/13/2019. He recently had reverse right shoulder arthroplasty done and return to the emergency room with complaints of chest pressure while he was at his outpatient physical therapy. He was admitted to the telemetry floor, troponins were negative, EKG showed normal sinus rhythm with left anterior hemiblock and a PVC, no acute changes. He apparently underwent a 2D echo with Doppler on 05/13/2019 which showed an EF of 65%, RVSP of 33 mmHg. In addition he underwent a treadmill/MPI which was negative for inducible ischemia. CTA of his chest was negative for pulmonary embolism. On further history, the patient states that his chest pain was a squeezing sensation over his right upper chest, and the staff at his physical therapy center had difficulty registering his blood pressure. He had no associated nausea, but did have some shortness of breath with it. It did not appear to be reproducible with palpation according to the patient. He has never had a heart catheterization or any cardiac issues. In our office today's blood pressure is 120/70, pulse is 64 and regular. His physical exam is as below. His lipids as of 05/14/2019 show an LDL of 56 and HDL of 52. Intake Vital Signs 05/26/19 Height 5 ft 8 in 05/26/19 Weight: 164 lb 05/26/19 Body Mass Index (BMI) 24.9 05/26/19 Blood Pressure 120/70 05/26/19 Blood Pressure Location Lt brachial 05/26/19 Blood Pressure Position Sitting 05/26/19 Respiratory Rate 20 H 05/26/19 Pulse Rate 64 05/26/19 Pulse Source Auscultation Intake Visit Reasons: CP/Ref. ED Administrative Nursing Supervisor Required: No Accompanied by: Significant Other Is patient in pain?: No Allergies tramadol Allergy (Verified 05/26/19 14:50) Hives codeine antitussive cough syrup Allergy (Intermediate, Uncoded 05/25/19 19:07) Rash Medications Atorvastatin Calcium [Lipitor] 40 mg PO QHS 02/25/19 [History Confirmed 05/25/19] Multivitamin [Multivitamins] 1 ea PO DAILY 02/25/19 [History Confirmed 05/25/19] Acetaminophen [Tylenol] 1,000 mg PO Q8 #90 tab 03/12/19 [Rx Confirmed 05/25/19] Famotidine [Pepcid] 20 mg PO DAILY #30 tab 03/12/19 [Rx Confirmed 05/25/19] [facility] Medical History Frequent PVCs (Acute) Chest pain (Acute) Hyperlipidemia (Chronic) Pulmonary nodule (Chronic) Lumbar stenosis (Chronic) Osteoarthritis (Chronic) Surgical History (Updated 05/26/19 @ 14:47 by Liz Franco) 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 Social History (Updated 05/26/19 @ 15:39 by Donal Hammond MD) Smoking Status: Never smoker ROS Const Const: Positive for other ([place] pressure in chest, sob at PT, taken to ER. Testing in PCU negative.); negative for fatigue, weakness, body ache, fever(s), headache(s), chills, frequent falls, night sweats, daytime sleepiness, difficulty sleeping, excessive sweating, weight gain, weight loss, increased appetite, poor appetite or anorexia Eyes Eyes: Negative for blind spots, loss of peripheral vision, transient loss of vision, blurry vision, change in vision, double vision, floaters, tunnel vision or other ENT ENT: Negative for headache(s), dizziness, hearing loss, tinnitus, Nosebleed/epistaxis, balance problems, post nasal drip, lip swelling, tongue swelling, bleeding gums, hoarseness, neck pain, dry mouth or other Cardio Chest Pain: No (Not since the episode on 05/13/19) Palpitations: No Edema: None Muscle aches with walking: None Resp Respiratory: Negative for SOB with activity, SOB at rest, SOB orthopnea\SOB lying down, Cough, Coughing up blood/hemoptysis, chest congestion, pain on inspiration, snoring, stridor, wheezing, crackles, paroxysmal nocturnal dyspnea or other GI GI: Negative nausea, vomiting, heartburn, constipation, belching, bloating, cramping, vomiting blood/hematemesis, bright, red blood in stools, black,tarry stools, loose stools, Difficulty Swallowing or other : Negative for hematuria, frequent nighttime urination/ nocturia, erectile dysfunction or abnormal vaginal bleeding Musc Musc: Negative for muscle aches/ myalgia, muscle weakness, joint pain or balance problems Skin Skin: Negative redness, non-healing lesions, rash, unusual bruising, skin ulcer, wounds, jaundice or other Neuro Neuro: Negative for dizziness, lightheadedness, near syncope, syncope, orthostatic symptoms, frequent falls, headache(s), weakness, confusion, memory loss, restless legs, blurry vision, double vision, vertigo, seizures, lack of coordination or other Chet Hematologic/Lymphatic: Negative for easy bleeding, easy bruising, enlarged lymph nodes or other Endo Endo: Negative for fatigue, cold intolerance, heat intolerance, excessive sweating, flushing, increased thirst/drinking, increased hunger, hair loss, hair growth or other Psych Psych: Negative for anxiety, depression, thoughts of harming anyone, thoughts of harming yourself, visual hallucinations, panic attacks or audible hallucinations Allergy Allergy/Immunology: Negative for throat swelling, Negative for tongue swelling, Negative for hives, Negative for rash, Negative for lip swelling Cardiology Exam Const Appearance: cooperative, healthy appearing and no acute distress Nutritional Appearance: well nourished Orientation: alert, oriented x3 and oriented to person Head Head: normal to inspection, normocephalic and atraumatic Nose: external nose normal Face and Sinus: face symmetric Mouth: oral mucosae normal Eyes General: appearance normal, both eyes and all related structures Eyelids: eyelids normal Conjunctivae: conjunctivae normal Pupils: PERRL and normal by confrontation EOM: EOM intact bilaterally Neck Neck: normal visual inspection and full ROM Carotids: normal carotid upstroke Chest Chest inspection: normal inspection of the chest Auscultation: Bilateral: Clear to Auscultation Cardio Palpation: normal PMI Rate: regular rate Rhythm: regular rhythm Heart sounds: S1 normal and S2 normal GI GI: normal to inspection, no hepatosplenomegaly and bowel sounds present Neuro General: alert, awake, oriented x3, CN's II-XI intact bilaterally and moves all extremities Skin Skin: no rashes or lesions noted Extremities Pulses: Normal: Right Femoral Pulse, Left Femoral Pulse, Right Dorsalis Pedis Pulse, Left Dorsalis Pedis Pulse, Right Posterior Tibial Pulse, Left Posterior Tibial Pulse, Right Radial Pulse, Left Radial Pulse Lower Extremity Edema: None: Bilateral Psych Psychological: normal affect Assessment & Plan 1. Chest pain, unspecified type R07.9 Plan 1. Chest pain: The patient presents with exertional chest pressure, cries but is a squeezing sensation with associated shortness of breath while he was undergoing physical therapy for his right shoulder surgery. Patient was admitted and ruled out for myocardial infarction underwent an echocardiogram which showed normal LV function and normal pulmonary pressures. CTA of his chest was negative for pulmonary embolism. Patient underwent a treadmill/MPI which was negative for overt ischemia. However, the patient has several risk factors for coronary occlusive disease including his age, abnormal EKG, and frequent PVCs to say nothing of his chest pain. I am gone over with the patient his the options of medical management versus a diagnostic coronary angiogram if nothing else for peace of mind, the patient wishes to pursue diagnostic coronary angiogram. The risks/benefits of the procedure were thoroughly explained the patient including specific attention to lack of on-site surgical back-up, and the patient has agreed to proceed. The patient will be loaded with Plavix 3 and a mill grams x1 now followed by 75 mg a day and started on baby aspirin 81 mg p.o. daily. His blood pressure and heart rate are well controlled so we will hold off on beta-josé therapy at this time. 2. Hyperlipidemia E78.5 Plan 2. Hyperlipidemia: His LDL and HDL cholesterol are goal I do not require additional therapy. Continue Lipitor. 3. Return office in 4 months with either myself or an CHILD CARE SUPERVISOR. This note was generated using a voice recognition system and there may be incorrect words, spelling or punctuation that were not noted when reviewing the office note prior to saving. Plan Detail Follow Up +4M (Hammond or CHILD CARE SUPERVISOR) Coding Level of Care Code Off vis,new,level 4 Diagnoses Chest pain, unspecified type R07.9 ??Chest pain type: unspecified Hyperlipidemia E78.5 Coding Level of Care Code Off vis,new,level 4 Diagnoses Chest pain, unspecified type R07.9 ??Chest pain type: unspecified Hyperlipidemia E78.5 Supplemental Info Supplemental Information Labs LDL Cholesterol 56 mg/dL (0-130) 05/14/19 HDL Cholesterol 52 mg/dL (40-) 05/14/19 Triglycerides 83 mg/dL (-199) 05/14/19 VLDL Cholesterol 17 mg/dL (5-40) 05/14/19 Diagnostics Electrocardiogram 05/14/19 Echocardiogram 05/13/19 Stress Test Nuclear Medicine 05/14/19 Stress Test 05/14/19 Chest X-Ray 05/13/19 05/26/19 [id number] <Electronically signed by Donal Hammond MD> Date _ Donal Hammond MD
[2019-05-26 14:35] VITALS: BMI 24.9
[2019-06-02 08:44] VITALS: BMI 24.9
--- NOTE | 2019-06-08 10:33 | HP.PCM_ITS ---
Problem List (1) Chest pain Status: Acute Qualifiers: (2) Frequent PVCs Status: Acute (3) Hyperlipidemia Status: Chronic History and Physical Date of Admission: 06/03/19 [facility] [address] [place] [address] OFFICE VISIT Date of Service: 05/26/19 MR#:[id number] Name: BREE COLLADO [facility] #:[id number] : 1940 Provider:Donal Hammond MD Age/Sex: 79/M Location:[facility] Status:Signed HPI HPI History of Present Illness Surgical H&P: Yes Details: Mr. Collado is a very pleasant 79-year-old nondiabetic, non-smoking gentleman with a history of hyper BPH, who was recently admitted to [facility] on 05/13/2019. He recently had reverse right shoulder arthroplasty done and return to the emergency room with complaints of chest pressure while he was at his outpatient physical therapy. He was admitted to the telemetry floor, troponins were negative, EKG showed normal sinus rhythm with left anterior hemiblock and a PVC, no acute changes. He apparently underwent a 2D echo with Doppler on 05/13/2019 which showed an EF of 65%, RVSP of 33 mmHg. In addition he underwent a treadmill/MPI which was negative for inducible ischemia. CTA of his chest was negative for pulmonary embolism. On further history, the patient states that his chest pain was a squeezing se nsation over his right upper chest, and the staff at his physical therapy center had difficulty registering his blood pressure. He had no associated nausea, but did have some shortness of breath with it. It did not appear to be reproducible with palpation according to the patient. He has never had a heart catheterization or any cardiac issues. In our office today's blood pressure is 120/70, pulse is 64 and regular. His physical exam is as below. His lipids as of 05/14/2019 show an LDL of 56 and HDL of 52. Intake Vital Signs 05/26/19 Height 5 ft 8 in 05/26/19 Weight: 164 lb 05/26/19 Body Mass Index (BMI) 24.9 05/26/19 Blood Pressure 120/70 05/26/19 Blood Pressure Location Lt brachial 05/26/19 Blood Pressure Position Sitting 05/26/19 Respiratory Rate 20 H 05/26/19 Pulse Rate 64 05/26/19 Pulse Source Auscultation Intake Visit Reasons: CP/Ref. ED Electrical Fitter Required: No Accompanied by: Significant Other Is patient in pain?: No Allergies tramadol Allergy (Verified 05/26/19 14:50) Hives codeine antitussive cough syrup Allergy (Intermediate, Uncoded 05/25/19 19:07) Rash Medications Atorvastatin Calcium [Lipitor] 40 mg PO QHS 02/25/19 [History Confirmed 05/25/19] Multivitamin [Multivitamins] 1 ea PO DAILY 02/25/19 [History Confirmed 05/25/19] Acetaminophen [Tylenol] 1,000 mg PO Q8 #90 tab 03/12/19 [Rx Confirmed 05/25/19] Famotidine [Pepcid] 20 mg PO DAILY #30 tab 03/12/19 [Rx Confirmed 05/25/19] [facility] Medical History Frequent PVCs (Acute) Chest pain (Acute) Hyperlipidemia (Chronic) Pulmonary nodule (Chronic) Lumbar stenosis (Chronic) Osteoarthritis (Chronic) Surgical History (Updated 05/26/19 @ 14:47 by Liz Franco) 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 Social History (Updated 05/26/19 @ 15:39 by Donal Hammond MD) Smoking Status: Never smoker ROS Const Const: Positive for other ([place] pressure in chest, sob at PT, taken to ER. Testi ng in PCU negative.); negative for fatigue, weakness, body ache, fever(s), headache(s), chills, frequent falls, night sweats, daytime sleepiness, difficulty sleeping, excessive sweating, weight gain, weight loss, increased appetite, poor appetite or anorexia Eyes Eyes: Negative for blind spots, loss of peripheral vision, transient loss of vision, blurry vision, change in vision, double vision, floaters, tunnel vision or other ENT ENT: Negative for headache(s), dizziness, hearing loss, tinnitus, Nosebleed/epistaxis, balance problems, post nasal drip, lip swelling, tongue swelling, bleeding gums, hoarseness, neck pain, dry mouth or other Cardio Chest Pain: No (Not since the episode on 05/13/19) Palpitations: No Edema: None Muscle aches with walking: None Resp Respiratory: Negative for SOB with activity, SOB at rest, SOB orthopnea\SOB lying down, Cough, Coughing up blood/hemoptysis, chest congestion, pain on inspiration, snoring, stridor, wheezing, crackles, paroxysmal nocturnal dyspnea or other GI GI: Negative nausea, vomiting, heartburn, constipation, belching, bloating, cramping, vomiting blood/hematemesis, bright, red blood in stools, black,tarry stools, loose stools, Difficulty Swallowing or other : Negative for hematuria, frequent nighttime urination/ nocturia, erectile dysfunction or abnormal vaginal bleeding Musc Musc: Negative for muscle aches/ myalgia, muscle weakness, joint pain or balance problems Skin Skin: Negative redness, non-healing lesions, rash, unusual bruising, skin ulcer, wounds, jaundice or other Neuro Neuro: Negative for dizziness, lightheadedness, near syncope, syncope, orthostatic symptoms, frequent falls, headache(s), weakness, confusion, memory loss, restless legs, blurry vision, double vision, vertigo, seizures, lack of coordination or other Chet Hematologic/Lymphatic: Negative for easy bleeding, easy bruising, enlarged lymph nodes or other Endo Endo: Negative for fatigue, cold intolerance, heat intolerance, excessive sweating, flushing, increased thirst/drinking, increased hunger, hair loss, hair growth or other Psych Psych: Negative for anxiety, depression, thoughts of harming anyone, thoughts of harming yourself, visual hallucinations, panic attacks or audible hallucinations Allergy Allergy/Immunology: Negative for throat swelling, Negative for tongue swelling, Negative for hives, Negative for rash, Negative for lip swelling Cardiology Exam Const Appearance: cooperative, healthy appearing and no acute distress Nutritional Appearance: well nourished Orientation: alert, oriented x3 and oriented to person Head Head: normal to inspection, normocephalic and atraumatic Nose: external nose normal Face and Sinus: face symmetric Mouth: oral mucosae normal Eyes General: appearance normal, both eyes and all related structures Eyelids: eyelids normal Conjunctivae: conjunctivae normal Pupils: PERRL and normal by confrontation EOM: EOM intact bilaterally Neck Neck: normal visual inspection and full ROM Carotids: normal carotid upstroke Chest Chest inspection: normal inspection of the chest Auscultation: Bilateral: Clear to Auscultation Cardio Palpation: normal PMI Rate: regular rate Rhythm: regular rhythm Heart sounds: S1 normal and S2 normal GI GI: normal to inspection, no hepatosplenomegaly and bowel sounds present Neuro General: alert, awake, oriented x3, CN's II-XI intact bilaterally and moves all extremities Skin Skin: no rashes or lesions noted Extremities Pulses: Normal: Right Femoral Pulse, Left Femoral Pulse, Right Dorsalis Pedis Pulse, Left Dorsalis Pedis Pulse, Right Posterior Tibial Pulse, Left Posterior Tibial Pulse, Right Radial Pulse, Left Radial Pulse Lower Extremity Edema: None: Bilateral Psych Psychological: normal affect Assessment & Plan 1. Chest pain, unspecified type R07.9 Plan 1. Chest pain: The patient presents with exertional chest pressure, cries but is a squeezing sensation with associated shortness of breath while he was undergoing physical therapy for his right shoulder surgery. Patient was admitted and ruled out for myocardial infarction underwent an echocardiogram which showed normal LV function and normal pulmonary pressures. CTA of his chest was negative for pulmonary embolism. Patient underwent a treadmill/MPI which was negative for overt ischemia. However, the patient has several risk factors for coronary occlusive disease including his age, abnormal EKG, and frequent PVCs to say nothing of his chest pain. I am gone over with the patient his the options of medical management versus a diagnostic coronary angiogram if nothing else for peace of mind, the patient wishes to pursue diagnostic coronary angiogram. The risks/benefits of the procedure were thoroughly explained the patient including specific attention to lack of on-site surgical back-up, and the patient has agreed to proceed. The patient will be loaded with Plavix 3 and a mill grams x1 now followed by 75 mg a day and started on baby aspirin 81 mg p.o. daily. His blood pressure and heart rate are well controlled so we will hold off on beta-josé therapy at this time. 2. Hyperlipidemia E78.5 Plan 2. Hyperlipidemia: His LDL and HDL cholesterol are goal I do not require ralph tional therapy. Continue Lipitor. 3. Return office in 4 months with either myself or an OTOLARYNGOLOGIST. This note was generated using a voice recognition system and there may be incorrect words, spelling or punctuation that were not noted when reviewing the office note prior to saving. Plan Detail Follow Up +4M (Hammond or OTOLARYNGOLOGIST) Coding Level of Care Code Off vis,new,level 4 Diagnoses Chest pain, unspecified type R07.9 Chest pain type: unspecified Hyperlipidemia E78.5 Coding Level of Care Code Off vis,new,level 4 Diagnoses Chest pain, unspecified type R07.9 Chest pain type: unspecified Hyperlipidemia E78.5 Supplemental Info Supplemental Information Labs LDL Cholesterol 56 mg/dL (0-130) 05/14/19 HDL Cholesterol 52 mg/dL (40-) 05/14/19 Triglycerides 83 mg/dL (-199) 05/14/19 VLDL Cholesterol 17 mg/dL (5-40) 05/14/19 Diagnostics Electrocardiogram 05/14/19 Echocardiogram 05/13/19 Stress Test Nuclear Medicine 05/14/19 Stress Test 05/14/19 Chest X-Ray 05/13/19 05/26/19 [id number]<Electronically signed by Donal Hammond MD> Date Donal Hammond MD Cosigner Signature:Date (if applicable) CC: Daniel Kearney III, MD ~ Attending addendum: Patient seen and examined again on the date of procedure. No interim change noted. We will proceed with left heart catheterization as planned. This note was generated using a voice recognition system and there may be incorrect words, spelling or punctuation that were not noted when reviewing the office note prior to saving.
--- NOTE | 2019-06-11 09:00 | CL.D_ITS ---
Patient Name: BREE COLLADO Study Date: 06/03/2019 Performing: Donal Hammond MD Ht: 68 inches 173 cm : 1940 Wt: 163.4 lbs 74 kg Age: 79 Gender: male BSA: 1.88 PROCEDURE(S) PERFORMED RP12-IIE/COR/LV CLINICAL PROFILE AND INDICATIONS Indications: Suspected CAD Heart Failure: None Stress/Imaging Date: 05/14/2019Stress Test with SPECT MPI: Negative CAD Presentations: Other: Dyspnea on exertion Comorbidities/Risk Factors: Hypertension Dyslipidemia CONCLUSIONS Non obstructive coronary arteries Normal LV size, wall motion,and systolic function Perserved Left Ventricular systolic function with normal EDP RECOMMENDATIONS Management as per referring [place] D/c plavix, cont baby asa. DESCRIPTION OF PROCEDURE The patient arrived to the procedure lab. The risks and benefits of the procedure as well as a full d escription of our services here and current unavailability of surgical backup were fully explained to the patient and/or their significant other prior to the catheterization. The Timeout was completed, verifying the correct patient and procedure. The patient's procedural site was prepped and draped in the usual fashion. Local anesthetic was given subcutaneously to right groin region with Lidocaine 2%. Using a modified Seldinger technique, arterial access was obtained via the right femoral artery, a 4 Fr sheath was inserted Left Coronary Artery selective angiography was performed in multiple views us ing a 4 Fr. JL5 catheter. Right Coronary Artery selective angiography was then performed in multiple views using a 4 Fr. 3DRC catheter. Left Ventriculography was performed in TO projection using a 4 Fr . Pigtail catheter. LV to AO pullback pressures were then recorded.The arterial sheath was pulled and manual compression applied until hemostasis is achieved. CORONARY ANGIOGRAPHY DOMINANCE: Right Dominant LEFT HEART ASSESSMENT Left Ventricular Ejection Fraction: by LV Gram 65 % Normal LV wall motion Normal Left Ventricular systolic function LVEDP: 13 mmHg Normal Left Ventricular End Diastolic Pressure LEFT MAIN: Angiographically normal LEFT ANTERIOR DESCENDING ARTERY: Angiographically normal CIRCUMFLEX ARTERY: Angiographically normal OM 1: Ostial - Moderate luminal irregularities up to 50% RIGHT CORONARY ARTERY: MID RCA: Mild luminal irregularities less than 30% COMPLICATIONS No Complications PROCEDURE MEDICATIONS Oxygen: 2 L/min via nasal cannula SUMMARY OF HEMODYNAMIC DATA Time AIR REST ECG 09:16:54 AO 132/70 (92) SA 11:34:52 LV 148/-18, 8 11:42:57 LV 142/-15, 15 11:43:03 LVp 143/-15, 13 11:43:13 AOp 140/65 (98) 11:43:18 ECG 12:59:29 Signed By Donal Hammond MD On 06/11/2019 8:59:45 AM Donal Hammond MD
== END 2019-06-03 16:06 | disposition home or self-care (01) ==
LOC: CLSP 08:52
PROVIDERS: Family Provider Family Medicine; PCP Family Medicine; Referring Provider Internal Medicine Cardiovascular Disease; Visit Provider Internal Medicine Cardiovascular Disease
DX: R07.9 Chest pain, unspecified (principal); I49.3 Ventricular premature depolarization; E78.5 Hyperlipidemia, unspecified; I10 Essential (primary) hypertension; R91.1 Solitary pulmonary nodule; M48.061 Spinal stenosis, lumbar region without neurogenic claudication; M19.90 Unspecified osteoarthritis, unspecified site; N40.0 Benign prostatic hyperplasia without lower urinary tract symptoms; Z79.899 Other long term (current) drug therapy
CPT/HCPCS: 93458; J7040; Q9967; C1769; C1894

== ENCOUNTER → 2020-03-28 10:08 | Outpatient (CLI) | payer MEDICARE, OTHER, SELFPAY ==
[2019-06-02 08:44] VITALS: BMI 24.9
--- NOTE | 2020-03-28 10:42 | MRI_ITS ---
STUDY: MRI LUMBAR SPINE WITHOUT CONTRAST REASON FOR EXAM: Male, 80 years old. back pain, hip pain, hx prior surgery TECHNIQUE: Standardized fat and water weighted pulse sequences were obtained in the sagittal and axial planes. COMPARISON: None FINDINGS: Lumbar lordosis slightly exaggerated. No significant scoliosis. Left hip arthroplasty. L4-5 spinal fixation with corresponding laminectomy. Conus medullaris terminates normally at the L1 level. No acute fracture. No acute dislocation. No acute bone destruction. Paraspinal muscle atrophy. Surgical scar. Sacrum intact. Normal retroperitoneum. Normal aorta. T12-L1: Schmorl''s node. Shallow disc bulge. Facet joint arthrosis. Normal central canal and bilateral lateral recesses. Normal bilateral intervertebral neural foramina. L1-2: Mild/moderate endplate spondylosis. Shallow disc bulge. Facet joint arthrosis. Left lateral recess narrowing without impingement. Neural foraminal narrowing without impingement. Ligamentous hypertrophy. L2-3: Mild endplate spondylosis. Disc bulge with mild central canal narrowing. Facet joint arthrosis. Bilateral lateral recess narrowing without impingement. Neural foraminal narrowing without impingement. Ligamentous hypertrophy. L3-4: Minimal endplate spondylosis. Disc bulge with mild/moderate central canal narrowing central canal. Facet joint arthrosis. Bilateral lateral recess narrowing with early contact of the descending nerve roots. Neural foraminal narrowing with impingement, left greater than right. Ligamentous hypertrophy. L4-5: Mild/moderate endplate spondylosis. Shallow disc bulge. Facet joint arthrosis. Normal central canal and bilateral lateral recesses. Neural foraminal narrowing without impingement. Grade 1 spondylolisthesis. L5-S1: Mild endplate spondylosis. Shallow disc bulge. Facet joint arthrosis. Normal central canal and bilateral lateral recesses. Normal bilateral intervertebral neural foramina. MRI/Spine Lumbar (Routine) IMPRESSION: Multilevel intervertebral disc disease with central canal narrowing at the L2-3 and L3-4 levels Multilevel lateral recess narrowing with contact of the bilateral descending L4 nerve roots Multilevel neural neural foraminal narrowing with impingement of the bilateral exiting L3 nerve roots Exaggerated lordosis, moderate osteoarthritis and uncomplicated postsurgical changes Electronically Signed: Huy Chand DO at 13:38 EDT Tel , Service support ,
== END ==
PROVIDERS: PCP Family Medicine; Referring Provider Anesthesiology Pain Medicine; Visit Provider Anesthesiology Pain Medicine
DX: M54.9 Dorsalgia, unspecified (principal)
CPT/HCPCS: 72148

== ENCOUNTER 2020-07-15 15:00 | Outpatient (RCR) | payer MEDICARE, OTHER, SELFPAY ==
[2019-06-02 08:44] VITALS: BMI 24.9
--- NOTE | 2020-04-19 11:04 | HP.PTEVAL_ITS ---
Patient's Visit Information BREE COLLADO is a 80 year old M referred to Physical Therapy by Dr. Cathy Read MD with a diagnosis of BACK PAIN ,LEFT LEG WEAKNESS. Date of Evaluation: 04/19/20 Physical Therapist: Jethro Carter, PT, Cert MDT, OCS - Visit Plan Frequency: 2x /Week Duration: 4 Weeks Plan: PT INTERVENTIONS MODALTIES FOR PAIN RELEIVE ,ROM/STRENGTHENING LEFTLEG,DLS,POSTURAL EX'S, - Subjective This 80 y/o male presents to physical therapy back pain and left leg weakness. Patient had lumbar surgery 3 years ago due to spinal stenosis with lumbar fusion ,then had left THR 4 months later. Most recently ,noticed left low back increase leg pain and groin to thigh. Patient most recently seen Dr Perez for lumbar and DR Holguin for hip everything looks okay. In the mean time patient has epidural injections in lumbar helped some . Patient has pain groin thigh and with weakness. Aggraveting factors walking,standing,difficulty with ADLS to put on shoe.Difficulty with lifting leg in car .Symptoms better with rest. Patient denies parathesia/tingling. Coughing/sneezing -. Symptoms affects sleeping. Patient has difficulty with decsending steps. Patient symptoms affects ADL'S and housework tasks. Patient symptoms affects QOL. SOCIAL: . VOCATION: retired - Pain Left Lower Extremity Pain Intensity (Out of 10): 8 Pain Intensity Range: 10 Comment: thigh - Objective POSTURE: mild foward posture. GAIT: antalgic gait mild foward posture left side. PALAPTION: tender L-S LEFT ,pelvis ,rectus femoris. NEURO: denies parathesia/tingling,reflexes L3-4,L4-5,L5-S1. SYMMTRIES :align. MMT: left quads 3/5,hip flexion 3-/5 ,hip abd 3-/5 ,ankle 4/5,right 4/5. LUMBAR ROM: flexion mod loss ,extension mod loss pain left LS,side glides mod loss left LS. AROM: hip flexion/abd/ext pain - Goals Goal 1:: Patient to be I with HEP Goal Time Frame: 4-6 Weeks Goal 2:: Pateint to improve posture for ADL'S Goal Time Frame: 4-6 Weeks Goal 3:: Patient to normilze gait pattern by 80% Goal Time Frame: 4-6 Weeks Goal 4:: Patient improve lumbar ROM for function of recovery Goal Time Frame: 4-6 Weeks Goal 5:: Patient increase strength by 3+/5 to quads/hip from function with gait Goal Time Frame: 4-6 Weeks Goal 6:: Patient to decrease back and leg pain by 50% or > to improve function with gait. Goal Time Frame: 4-6 Weeks - Rehabilitation Potential Physical Therapy Diagnosis: This 80 y/o male has left lumbar pain along with weakness left leg but has of lumbar fusion 3 years ago as well as LEFT THR with current pain left leg ,groin thigh with weakness impairs gait ,function and ADL's Rehabilitation Potential: Good - Anticipated Interventions Patient/Client Instruction: Educate patient on: Condition For the Purpose of:: To decrease pain, To increase ROM, To improve muscle performance and motor function, To improve ability to perform ADL's, To increase tolerance to activity/condition/position, To improve ability of physical actions for home/community/work/leisure, To improve health of tissue, To decrease soft tissue restriction, To improve ability to perform tasks related to life management Therapeutic Exercise to Include: Strength training, Body mechanics, Postural training, Flexibilty training, Dynamic Lumbar Stabilization, Isabelle Exercises For the Purpose of:: To decrease pain, To increase ROM, To improve muscle performance and motor function, To increase tolerance to activity/c ondition/position, To improve ability of physical actions for home/community/work/leisure, To improve health of tissue, To decrease soft tissue restriction, To increase flexibility/ROM, To improve ability to perform tasks related to life management TENS: Yes IF ES: Yes Cryotherapy (ice pack, ice massage): Yes Thermo therapy (hot pack): Yes Ultrasound (thermal/non thermal): Yes For the Purpose of:: To decrease pain, To increase ROM, To improve nutrient delivery to tissue, To increase oxygenation perfusion, To improve health of tissue, To decrease soft tissue restriction Thank you for the opportunity to evaluate your patient. For Medicare and Medicare HMO plans, please review the plan of care and approve it. It will need to be FAXED BACK to us at [phone] for Medicare purposes. For Medicare only, by signing this I certify the plan of care. Please let me know if there are questions or concerns regarding this plan of care. Physician Signature: Date:
--- NOTE | 2020-05-26 16:34 | HP.PTREVAL ---
Dr. Cathy Read MD, It has been my pleasure to treat BREE COLLADO over the last 9 visits for BACK PAIN ,LEFT LEG WEAKNESS. Please see the progress note below for an update on the physical therapy plan of care! Subjective: I think PT is helping alot . Much better overall, but difficulty picking up leg for example putting on shoe. Plan to See epidural injections. Dr Holguin stated hip is doing good. Also seen Dr Mcdaniels for. lumbar Objective/Function: POSTURE: mild foward posture. GAIT: reciprocal patern mild foward posture ,antalgic gait left. NEURO: intact,denies parathesia/tingling,reflexes L3-4,L4-5,L5-S1 1/3. PALAPTION: unremarkable. LUMBAR ROM: flexion min loss,extension mod loss,side glides mild loss. MMT: quads/hams 4/5,righ hip flexion 4-/5,abd 4-/5,left hams 4/5,quads 3+/5 ,hip flexion 3+/5,hip abd 3/5 ,ankle 4/5 Plan Plan: ONT 2X/WK FOR 4WEEKS PT INTERVENTIONS MODALTIES FOR PAIN RELEIVE ,ROM/STRENGTHENING LEFTLEG,DLS,POSTURAL EX'S, Goals Goal 1:: Patient to be I with HEP Goal Time Frame: 4-6 Weeks Goal Progress: Goal Met Goal 2:: Pateint to improve posture for ADL'S Goal Time Frame: 4-6 Weeks Goal Progress: Progressing Goal 3:: Patient to normilze gait pattern by 80% Goal Time Frame: 4-6 Weeks Goal Progress: Progressing Goal 4:: Patient improve lumbar ROM for function of recovery Goal Time Frame: 4-6 Weeks Goal Progress: Progressing Goal 5:: Patient increase strength by 3+/5 to quads/hip from function with gait Goal Time Frame: 4-6 Weeks Goal Progress: Progressing Goal 6:: Patient to decrease back and leg pain by 50% or > to improve function with gait. Goal Time Frame: 4-6 Weeks Goal Progress: Progressing Anticipated Interventions Patient/Client Instruction: Educate patient on: Condition For the Purpose of:: To decrease pain, To increase ROM, To improve muscle performance and motor function, To improve ability to perform ADL's, To increase tolerance to activity/condition/position, To improve ability of physical actions for home/community/work/leisure, To improve health of tissue, To decrease soft tissue restriction, To improve ability to perform tasks related to life management Therapeutic Exercise to Include: Strength training, Body mechanics, Postural training, Flexibilty training, Dynamic Lumbar Stabilization, Isabelle Exercises For the Purpose of:: To decrease pain, To increase ROM, To improve muscle performance and motor function, To increase tolerance to activity/condition/position, To improve ability of physical actions for home/community/work/leisure, To improve health of tissue, To decrease soft tissue restriction, To increase flexibility/ROM, To improve ability to perform tasks related to life management TENS: Yes IF ES: Yes Cryotherapy (ice pack, ice massage): Yes Thermo therapy (hot pack): Yes Ultrasound (thermal/non thermal): Yes For the Purpose of:: To decrease pain, To increase ROM, To improve nutrient delivery to tissue, To increase oxygenation perfusion, To improve health of tissue, To decrease soft tissue restriction Please do not hesitate to contact me at [phone] by phone or if you have questions or concerns regarding this new plan of care! Sincerely, Jethro Carter, PT, Cert MDT, OCS
--- NOTE | 2020-07-15 15:55 | HP.PTDCSUM ---
It has been my pleasure to treat BREE COLLADO referred by Dr. Cathy Read MD, with the diagnosis of BACK PAIN ,LEFT LEG WEAKNESS for a total of 16 visit(s). Discharge Date: 07/15/20 Please see the following information for a summary of their discharge status. Subjective: Doing good hip is stronger .. able to ascend/desend stairs carrying something . Patient I with gym program Left Lower Extremity Pain Intensity (Out of 10): 0 % Improvement: 50 Objective/Function: POSTURE: MILD FOWARD POSTURE. GAIT: RECIPROCAL PATTERN MILD ANTALGIC GAIT. MMT: QUADS/HAMS 4/5,HIP FLEXION 4/5,ABD 4-/5 ,SOME PAIN WITH KNEE EXTENSION. LUMBAR ROM: FLEXION WFL ,EXTENSION MIN LOSS,SIDE GLIDS MIN LOSS Goal 1:: Patient to be I with HEP Goal Progress: Goal Met Goal 2:: Pateint to improve posture for ADL'S Goal Progress: Goal Met Goal 3:: Patient to normilze gait pattern by 80% Goal Progress: Goal Met Goal 4:: Patient improve lumbar ROM for function of recovery Goal Progress: Progressing Goal 5:: Patient increase strength by 3+/5 to quads/hip from function with gait Goal Progress: Goal Met Goal 6:: Patient to decrease back and leg pain by 50% or > to improve function with gait. Goal Progress: Goal Met Plan: D/C TO [facility] Discharge Comments: [facility] If there are questions or concerns regarding this patient's physical therapy, please feel free to call me at [phone]. Thank you for the referral of this patient. Sincerely, Jethro Carter, PT, Cert MDT, OCS
== END 2020-07-15 19:00 | disposition home or self-care (01) ==
LOC: PT 15:00
PROVIDERS: PCP Family Medicine; Referring Provider Anesthesiology Pain Medicine; Visit Provider Anesthesiology Pain Medicine
DX: M54.9 Dorsalgia, unspecified (principal); R29.898 Other symptoms and signs involving the musculoskeletal system
CPT/HCPCS: 97014; 97035; 97110; 97162; 97530; G0283

== ENCOUNTER → 2022-11-22 | Outpatient (CLI) | payer MEDICARE, OTHER, SELFPAY ==
--- NOTE | 2022-11-22 10:54 | US_ITS ---
STUDY: SUPERFICIAL ULTRASOUND - LEFT LEG. REASON FOR EXAM: Male, 82 years old. MASS OF LOWER LEFT LEG TECHNIQUE: A superficial ultrasound was performed with real-time and static kimble-scale imaging. COMPARISON: None. FINDINGS: The urinary of the palpable abnormality was examined with ultrasound. There is diffuse edematous change. No focal mass lesion is seen. US/Ext Non Vasc Limited/Soft Tiss IMPRESSION: Diffuse edematous change. No focal mass lesion is seen. Electronically Signed: Emiliano Raza MD at 12:25 EST ,
== END | disposition home or self-care (01) ==
LOC: US 10:52
PROVIDERS: PCP Family Medicine; Visit Provider Family Medicine
DX: R22.42 Localized swelling, mass and lump, left lower limb (principal)
CPT/HCPCS: 76882

== ENCOUNTER 2023-02-19 06:55 | Day surgery (SDC) | payer MEDICARE, OTHER, SELFPAY ==
[2023-02-19] VITALS (7 sets, daily range): BP systolic 103–133; BP diastolic 44–80; PULSE 56–89; RESP 16; TEMP 36.3–36.7; O2SAT 96–98; BMI 22.4
--- NOTE | 2023-02-19 07:02 | HP.PCM_ITS ---
History and Physical Date of Admission: 02/19/23 Visit Reasons:?Rectal bleeding Chief Complaint: rectal bleeding Allergies codeine Allergy (Verified 06/24/22 16:07) Rashtramadol Allergy (Verified 10/14/19 14:06) Hives Medications atorvastatin 40 mg tablet 40 mg PO QHS CHOLESTEROL 02/25/19 [History Confirmed 01/18/23] multivitamin 1 ea PO DAILY VITAMIN 02/25/19 [History Confirmed 10/14/19] acetaminophen 500 mg tablet 1,000 mg PO Q8 #90 tabs 03/12/19 [Rx Confirmed 10/14/19] famotidine 20 mg tablet 20 mg PO DAILY #30 tabs 03/12/19 [Rx Confirmed 10/14/19] aspirin 81 mg tablet,delayed release (Adult Aspirin Regimen) 81 mg PO DAILY 05/26/19 [History Confirmed 10/14/19] PFSH Medical History? Chest pain Frequent PVCs Hyperlipidemia Lumbar stenosis Osteoarthritis Pulmonary nodule Surgical History? History of left heart catheterization (06/03/19) History of right shoulder replacement (03/11/19) Family History? Brother Lung cancerBrother DiabetesBrother DiabetesBrother HypertensionMother?? ,? in MVA Motor vehicle accidentFather?? ,? of unknown cause ?? No problems noted. Social History? Smoking Status:? Never smoker HPI HPI HPI: 82-year-old gentleman is being referred for surgical consultation regarding rectal bleeding.? Patient is being referred by Tere Pruitt PA-C and a written copy of my surgical consult recommendations will return to her.? The patient presents with his daughter today.? I have assisted her with a previous cholecystectomy.? I have also assisted the patient's with a colonoscopy.? Unfortunately currently she has a new diagnosis of ovarian cancer.? By report she is electing to proceed with chemotherapy. 82-year-old gentleman says he has intermittent rectal bleeding.? He does have some constipation issues and does not drink enough fluid.? He does take some Metamucil.? He likes drinking coffee.? He thinks remotely in the 1960s he had a hemorrhoid procedure. He states that some tissue seems to prolapse down there.? But he does not have any fecal incontinence. It is of note though he has had lumbar spine surgery for spinal stenosis.? He states that he remains physically active and that subsequent to the surgery he was improved.? He is not describing any numbness or muscular weakness. Family history is negative for colon cancer. He has had a slight 5 pound weight loss according to him related to his 's new diagnosis. He denies any abdominal pain.? No nausea or vomiting.? He has not had any previous abdominal surgery.? He is not on any anticoagulants. ROS General General: Yes weight change; No appetite, fatigue, colon cancer, breast cancer or weakness HEENT HEENT: No difficulty swallowing, eye injury, eye surgery, swollen glands or hoarseness Endo Endocrine: No thyroid disease, diabetes mellitus, thyroid cancer, Hair loss, heat intolerance or cold intolerance Skin Skin: No rash or changing moles Breast Breast: No left breast lump, right breast lump, nipple discharge, breast pain, abnormal mammogram, abnormal US or breast enlargement Musc Musculoskeletal: Yes back problems and arthritis; No rheumatoid arthritis, gout or joint pain Cardio Cardiovascular: No murmur, pacemaker, heart disease, atrial fibrillation, high blood pressure, heart attack, heart stent, palpitations, shortness of breat with exertion or chest pain Psych Psychiatric: Yes anxiety; No depression or hearing voices Resp Respiratory: No shortness of breath, No sleep apnea, No cough, No COPD, No asthma, No emphysema and No wheezing Gastro Gastrointestinal: No abdominal pain, No nausea or vomiting, No diarrhea, No constipation, Yes blood in stool, No acid reflux, No hemorrhoids, No ulcers, No gallbladder problem and No black,tarry stools Chet Hematologic: No blood thinners, No blood disorders, No bleeding, No anemia and No blood clots Neuro Neurologic: No system reviewed and no additional complaints, except as documented, No as per HPI, No abnormal gait, No abnormal hearing, No abnormal movements, No abnormal speech, No behavioral changes, No burning sensations, No confusion, No convulsions, No disequilibrium, No dizziness, No localized weakness, No frequent falls, No headache(s), No lack of coordination, No loss of vision, No memory loss, No numbness, No other visual disturbances, No radicular pain, No restless legs, No sensory deficit, No syncope, No tingling, No tremor(s), No weakness and No other Exam Const General: cooperative, healthy appearing, comfortable and no acute distress [facility] Head: normal to inspection Eyes General: appearance normal, both eyes and all related structures Neck Neck: normal visual inspection Chest Chest palpation & inspection: normal inspection of the chest Resp Effort & Inspection: normal respiratory effort Auscultation: clear to auscultation bilaterally Cardio Rate: regular rate Rhythm: regular rhythm GI Palpation: soft and no hepatosplenomegaly Skin General: no rashes or lesions noted Neuro General: patient alert, patient awake and patient oriented x3 Extrem Other: Venous stasis changes left lower extremity.? No pitting edema. Psych Appearance: grossly normal Assessment and Plan Assessment and Plan (1) Rectal hemorrhage: Plan I recommend to the patient a colonoscopy with possible biopsy or polypectomy as indicated.? Very careful inspection for possible hemorrhoidal prolapse or even rectal prolapse will be pursued.? Inspection for possible hemorrhoidal bleeding or anal fissure though less likely as this is painless.? He has had an opportunity to ask and have questions answered.? We will try to schedule and expedite his care and work around his 's treatment as well.? His daughter is offering great assistance to him and will help facilitate his care. Copy: STIVEN Staples M.D., F.A.C.S. I have examined the patient and the H&P has been reviewed. There are no clinical changes since date of exam. Wilman Kearney M.D., F.A.C.S.
[2023-02-19] MEDS: Lactated Ringers 1,000 ML 15 ML IV (07:33)
--- NOTE | 2023-02-19 08:44 | OP.CCLET_ITS ---
02/19/2023 Pedro Alarcon MD Re : Colonoscopy procedure for Edwardo Serna Dear Dr. Alarcon This procedure was performed on Sunday, February 19, 2023. My impressions and recommendations are as follows: Impressions : - Non-thrombosed external hemorrhoids, non-thrombosed internal hemorrhoids and internal hemorrhoids that prolapse with straining, but require manual replacement into the anal canal (Grade III) found on digital rectal exam. On retrograde inspection there is evidence of previous scarring from remote hemorrhoidectomy. - Diverticulosis in the sigmoid colon and in the descending colon. - Tortuous colon. - No specimens collected. Recommendations : - Discharge patient to home. - Resume previous diet. - Continue present medications. - Repeat colonoscopy in 10 years for screening purposes. - Return to my office PRN if bleeding persists or he would want to discuss potential for redo surgical hemorrhoidectomy I suspect that the intermittent rectal bleeding is secondary to internal hemorrhoids. My findings are described in the full procedure note, which is enclosed. If I can be of further assistance, please feel free to contact me at Doctor phone number(s): Work: . Sincerely, Wilman Kearney MD 02/19/2023 8:43:41 AM This report has been signed electronically.
--- NOTE | 2023-02-19 08:44 | OP.COLON_ITS ---
Patient Name: Edwardo Serna Procedure Date: 02/19/2023 8:13 AM Date of : 1940 Age: 82 Procedure: Colonoscopy Indications: Rectal bleeding Providers: Wilman Kearney MD Referring MD: Wilman Kearney MD Medicines: See the Anesthesia note for documentation of the administered medications Patient Profile: Last Colonoscopy: more than 10 years ago. Complications: No immediate complications. Procedure: Pre-Anesthesia Assessment: - Prior to the procedure, a History and Physical was performed, and patient medications and allergies were reviewed. The patient's tolerance of previous anesthesia was also reviewed. The risks and benefits of the procedure and the sedation options and risks were discussed with the patient. All questions were answered, and informed consent was obtained. Prior Anticoagulants: The patient has taken no previous anticoagulant or antiplatelet agents. ASA Grade Assessment: II - A patient with mild systemic disease. After reviewing the risks and benefits, the patient was deemed in satisfactory condition to undergo the procedure. After I obtained informed consent, the scope was passed under direct vision. Throughout the procedure, the patient's blood pressure, pulse, and oxygen saturations were monitored continuously. The Colonoscope was introduced through the anus and advanced to the cecum, identified by appendiceal orifice and ileocecal valve. The colonoscopy was somewhat difficult due to a tortuous colon. Successful completion of the procedure was aided by applying abdominal pressure. The patient tolerated the procedure well. The quality of the bowel preparation was adequate to identify polyps. The ileocecal valve and the appendiceal orifice were photographed. Scope In: 8:19:42 AM Scope Withdrawal Time 0 hours 8 minutes 57 seconds Scope Out: 8:37:56 AM Total Procedure Duration Time 0 hours 18 minutes 14 seconds Findings: The digital rectal exam findings include non-thrombosed external hemorrhoids, non-thrombosed internal hemorrhoids and internal hemorrhoids that prolapse with straining, but require manual replacement into the anal canal (Grade III). Pertinent negatives include normal prostate (size, shape, and consistency). Multiple diverticula were found in the sigmoid colon and descending colon. The colon (entire examined portion) was moderately tortuous. Impression: - Non-thrombosed external hemorrhoids, non-thrombosed internal hemorrhoids and internal hemorrhoids that prolapse with straining, but require manual replacement into the anal canal (Grade III) found on digital rectal exam. On retrograde inspection there is evidence of previous scarring from remote hemorrhoidectomy. - Diverticulosis in the sigmoid colon and in the descending colon. - Tortuous colon. - No specimens collected. Recommendation: - Discharge patient to home. - Resume previous diet. - Continue present medications. - Repeat colonoscopy in 10 years for screening purposes. - Return to my office PRN if bleeding persists or he would want to discuss potential for redo surgical hemorrhoidectomy I suspect that the intermittent rectal bleeding is secondary to internal hemorrhoids. Procedure Code(s): --- Professional --- 72350, Colonoscopy, flexible; diagnostic, including collection of specimen(s) by brushing or washing, when performed (separate procedure) Diagnosis Code(s): --- Professional --- K64.2, Third degree hemorrhoids K64.4, Residual hemorrhoidal skin tags K62.5, Hemorrhage of anus and rectum K57.30, Diverticulosis of large intestine without perforation or abscess without bleeding Q43.8, Other specified congenital malformations of intestine CPT copyright 2017 [employer]. All rights reserved. The codes documented in this report are preliminary and upon head esthetician review may be revised to meet current compliance requirements. Wilman Kearney MD 02/19/2023 8:43:41 AM This report has been signed electronically. Number of Addenda: 0 Note Initiated On: 02/19/2023 8:13 AM
== END 2023-02-19 09:39 | disposition home or self-care (01) ==
LOC: EN 06:58 → AC 06:59
PROVIDERS: PCP Family Medicine; Referring Provider Surgery; Visit Provider Surgery
PROC: 0DJD8ZZ Inspection of Lower Intestinal Tract, Via Natural or Artificial Opening Endoscopic (ICD-10-PCS; CPT 45378; principal; 2023-02-19 08:10)
DX: K57.30 Diverticulosis of large intestine without perforation or abscess without bleeding (principal); K64.2 Third degree hemorrhoids; K64.4 Residual hemorrhoidal skin tags; E78.00 Pure hypercholesterolemia, unspecified; K62.5 Hemorrhage of anus and rectum; Z79.899 Other long term (current) drug therapy
CPT/HCPCS: 45378; J7120; J2405

== ENCOUNTER → 2023-05-03 | Outpatient (CLI) | payer MEDICARE, OTHER, SELFPAY ==
--- NOTE | 2023-05-03 07:55 | RAD_ITS ---
PROCEDURE: Fluoroscopic guided left shoulder Injection DATE: May 03, 2023. INDICATION: Male, 83 years old. Chronic left shoulder pain. PHYSICIAN: Emiliano Raza M.D. MEDICATIONS: 12 mg of betamethasone and 4 cc of 1% lidocaine. 2% lidocaine administered subcutaneously for local anesthesia. ACCESS SITE: Left shoulder. NEEDLE: 22-gauge spinal needle. FLUOROSCOPY TIME (if supplied): (0:41) minutes/seconds. 3.88 mGy. One image was submitted. FINDINGS: The risks, benefits, and alternatives to the procedure were explained to the patient. The specific risks of bleeding, infection, and neurovascular injury were detailed and accepted. Witnessed informed consent was obtained. A 22-gauge spinal needle was positioned under Radiographic fluoroscopic localization. Approximately 2 cc of Isovue 300 instilled for localization purposes. Medication was then injected. The patient tolerated the procedure well without any immediate complications. RAD/Inj/Asp Simeon Jt Should/Hip/Knee IMPRESSION: Successful fluoroscopic guided left shoulder injection The patient tolerated the procedure well. Electronically Signed: Emiliano Raza MD at 9:02 EDT ,
[2023-05-03] MEDS: Lidocaine 2% (5ml sdv) 5 ML VIAL.MPF INFILT (08:15)
[2023-05-03] MEDS: Betamethasone/Betamethasone 30 MG/5 ML Vial 12 MG INTRAARTIC (08:18)
[2023-05-03] MEDS: Lidocaine 1% (5 ml sdv) 5 ML Vial 4 ML INFILT (08:18)
[2023-05-03 09:30] LABS: Absolute Neutrophil Count 5.3 X10^3/uL (2.0-7.7); Basophil# 0.03 X10^3/uL; Basophil% 0.4 % (0-1); Eosinophil# 0.17 X10^3/uL; Eosinophils% 2.1 % (0-5); Hematocrit 43.7 % (40-54); Hemoglobin 14.4 g/dL (13.0-16.5); Lymphocyte % 21.3 % (19-41); Mean Corpuscular Hgb 33.6 pg (27.0-32.0); Mean Corpuscular Volume 102.1 fL (80-94); Mean Platelet Vol. 10.1 fl (6.2-12.0); Monocyte# 0.71 X10^3/uL; Monocyte% 8.9 % (0-10); NRBC Flagged by Analyzer 0 % (0-5); Neutrophil # 5.31 X10^3/uL (2.7-7.7); Neutrophil % 66.5 % (47-70); Platelet Count 195 K/mm3 (150-450); RBC Distribution Width CV 14.1 % (11.6-14.6); Red Blood Count 4.28 M/mm3 (4.6-6.2)
[2023-05-03 09:46] LABS: Erythrocyte Sedimentation Rate 12 mm/hr (0-20)
[2023-05-03 09:55] LABS: CRP < 2.90 mg/L (0.0-3.0)
== END | disposition home or self-care (01) ==
LOC: RAD 07:39
PROVIDERS: PCP Family Medicine; Referring Provider Specialist; Visit Provider Specialist
DX: M19.012 Primary osteoarthritis, left shoulder (principal); Z96.642 Presence of left artificial hip joint; M25.552 Pain in left hip
CPT/HCPCS: 23350; 20610; 36415; 77002; 85025; 85652; 86140; J0702

== ENCOUNTER → 2023-05-31 | Outpatient (CLI) | payer MEDICARE, OTHER, SELFPAY ==
--- NOTE | 2023-05-31 15:00 | CT_ITS ---
STUDY: CT LEFT HIP WITHOUT CONTRAST REASON FOR EXAM: Male, 83 years old. Pain. History of total hip arthroplasty in 2017. Patient states hardware has been recalled. RADIATION DOSAGE (If Supplied By Facility): CTDIvol = ( 12.09 ) mGy, DLP = ( 353.02 ) mGycm TECHNIQUE: Transaxial imaging of the pelvis was performed with oral contrast, and without intravenous administration of contrast material. Significant metallic artifact from the total hip arthroplasty. Some diagnostic information is available. Individualized dose optimization techniques were used for this CT. COMPARISON: None. FINDINGS: Osteopenia. Mild arthrosis of the left sacroiliac joint and symphysis pubis. Left total hip arthroplasty in anatomic alignment. Scattered corticated soft tissue ossicles projected anterior to the intertrochanteric region. Marked vascular calcification. CT/Extremity Lower without Contra IMPRESSION: Osteopenia with uncomplicated left total hip arthroplasty. 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 No acute abnormality or erosive changes. Electronically Signed: Tramanie Caldwell MD at 15:50 EDT ,
== END | disposition home or self-care (01) ==
LOC: CT 14:57
PROVIDERS: PCP Family Medicine; Referring Provider Specialist; Visit Provider Specialist
DX: M25.552 Pain in left hip (principal); M25.452 Effusion, left hip; Z96.642 Presence of left artificial hip joint
CPT/HCPCS: 73700

== ENCOUNTER → 2023-06-07 | Outpatient (CLI) | payer MEDICARE, OTHER, SELFPAY ==
[2023-06-07 12:50] LABS: Synovial Fld Mononuclear WBC % 47.8 %; Synovial Fld Polynuclear WBC % 52.2 %
[2023-06-07 12:55] LABS: RBC /Synovial Fluid 0.007 10^6/uL (0)
[2023-06-07 12:56] LABS: AUTO B FLUID DILUENT BKGD CT WBC <0.1 RBC <0.01 (W<.1,R<.01); Appearance /Synovial Fluid Cloudy (CLEAR); Color / Synovial Fluid Yellow (Pale Yellow); Viscosity / Synovial Fluid Viscous (HIGH)
[2023-06-07 13:46] LABS: Lymph 7 %; Monocyte /Synovial Fluid 88 %; Neutrophil 5 % (0-25)
[2023-06-07 13:48] LABS: Body Fluid QC Type(s) BF1Q
[2023-06-11 08:59] LABS: Pathologist Comment Reviewed
== END | disposition home or self-care (01) ==
LOC: LABSPEC 12:13
PROVIDERS: PCP Family Medicine; Referring Provider Specialist; Visit Provider Specialist
DX: M67.80 Other specified disorders of synovium and tendon, unspecified site (principal)
CPT/HCPCS: 87070; 87075; 87186; 87205; 89050; 89051

== ENCOUNTER 2023-07-24 09:49 | Day surgery (SDC) | payer MEDICARE, OTHER, SELFPAY ==
--- NOTE | 2023-07-16 12:59 | EKG12_ITS ---
Test Reason : PREOP Blood Pressure : / mmHG Vent. Rate : 081 BPM Atrial Rate : 081 BPM P-R Int : 164 ms QRS Dur : 098 ms QT Int : 392 ms P-R-T Axes : 082 -59 012 degrees QTc Int : 455 ms Normal sinus rhythm Left anterior fascicular block Nonspecific ST abnormality Abnormal ECG Confirmed by ANKITA THOMASON, KYLIE ([id number]), writer editor FLORENCE SMALLS ([id number]) on 07/17/2023 7:22:00 AM Referred By: Wilman Kearney Confirmed By:KYLIE LUCIANO MD
[2023-07-16 14:21] LABS: Hematocrit 41.8 % (40-54); Hemoglobin 13.7 g/dL (13.0-16.5); Mean Corp Hgb Conc 32.8 g/dL (32-36); Mean Corpuscular Hgb 33.7 pg (27.0-32.0); Mean Platelet Vol. 10.2 fl (6.2-12.0); Platelet Count 214 K/mm3 (150-450); RBC Distribution Width CV 13.8 % (11.6-14.6); RBC Distribution Width SD 52.4 fl (35.1-43.9); Red Blood Count 4.06 M/mm3 (4.6-6.2); White Blood Count 9.9 K/mm3 (4.4-11.0)
[2023-07-16 14:42] LABS: Anion Gap 3 (5-15); BUN 24 mg/dL (7-18); BUN/Creat Ratio 20.7 RATIO (10-20); Calcium,Total 8.7 mg/dL (8.5-10.1); Chloride 107 mmol/L (98-107); Creatinine, Serum 1.16 mg/dL (0.70-1.30); EST Glomerular Filtration Rate 64 mL/min (>60); Est Glom Filt Rate - Afr Amer 77 mL/min (>60); Glucose 104 mg/dL (74-106); Sodium Level 140 mmol/L (136-145)
[2023-07-24] VITALS (8 sets, daily range): BP systolic 104–167; BP diastolic 53–94; PULSE 63–88; RESP 12–17; TEMP 36.3–36.8; O2SAT 91–100; BMI 22.8
[2023-07-24] MEDS: Lactated Ringers 1,000 ML 15 ML IV ×2 (10:26→18:33)
--- NOTE | 2023-07-24 12:00 | HEM_PTH ---
PATIENT: BREE COLLADO LOC: [facility] [place] U#:[id number] AGE/SX: 83/M ROOM: RE07/24/[address]: Dr. Wilman Kearney MD : 1940 BED: DIS: 07/24/2023 SPEC #: [id number] RECD: 07/24/23 16:48 STATUS: JAIMEE BRYANT #: [id number] CAROLE: 07/24/23 12:[address]: Wilman Kearney DEPT: SURGICAL PATHOLOGY RECD BY: Vika Geronimo ENTERED: 07/25/23 09:51 SP TYPE: HEMORRHOID OTHR DR: Dr. Pedro Alarcon MD Tissues: HEMORRHOIDS Procedures: Surgery Specimen Level III HEADER OPERATION: Multiple column hemorrhoidectomy PRE-OP DIAGNOSIS: Internal bleeding hemorrhoids TISSUE SUBMITTED: Hemorrhoids MICROSCOPIC DIAGNOSIS Hemorrhoids, hemorrhoidectomy: Pieces of squamous mucosa with dilated and congested blood vessels, hemorrhoids. SJ:larry 07/26/2023 MICROSCOPIC DESCRIPTION Slides are reviewed. GROSS DESCRIPTION Received in fixative is one container labeled with the patient's name and designated hemorrhoids. The specimen consists of three irregular fragments of light to dark mantilla soft tissue ranging in size from 1.2 to 3.0 cm. Audit Manager sections are submitted in one cassette. / AM:larry 07/25/2023 TC:5 CPT: 92161
--- NOTE | 2023-07-24 12:39 | HP.PCM_ITS ---
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 Is patient in pain?: No Allergies codeine Allergy (Verified 05/02/23 14:05) Rashtramadol Allergy (Verified 05/02/23 14:05) Hives Medications atorvastatin 40 mg tablet 40 mg PO QHS CHOLESTEROL 02/25/19 [History Confirmed 05/02/23] multivitamin 1 ea PO DAILY VITAMIN 02/25/19 [History Confirmed 05/02/23] tamsulosin 0.4 mg capsule (Flomax) 0.4 mg PO QHS 02/15/23 [History Confirmed 05/02/23] [facility] Medical History Cardiology follow-up encounter Chest pain Frequent PVCs High cholesterol History of echocardiogram History of pain when walking History of stress test Hyperlipidemia Non-smoker Osteoarthritis Pulmonary nodule Syncope Surgical History (Updated 02/15/23 @ 11:24 by Samantha Stallworth) History of left heart catheterization (06/03/19) History of lumbar fusion History of right shoulder replacement (03/11/19) Hx of colonoscopy Hx of total hip arthroplasty Family History Brother Lung cancerBrother DiabetesBrother DiabetesBrother HypertensionMother , in MVA Motor vehicle accidentFather , of unknown cause No problems noted. Social History Smoking Status: Never smoker HPI HPI HPI: 83-year-old gentleman. I did seen him in the office on January 18, 2023. He is referred for surgical consultation regarding rectal bleeding. I have helped him in the past with a cholecystectomy. At the time of that appointment he had made reference that he thought he had had a hemorrhoid procedure in the 1960s. He thinks he had some prolapsing tissue down there more recently. He has a history of spinal stenosis and lumbar spine surgery for that. To assist on February 19, 2023 I performed a colonoscopy. I felt that there were internal and external hemorrhoids particularly internal hemorrhoids requiring manual replacement. Multiple diverticula was seen of the sigmoid colon. On the retrograde view the re was suggestion of previous scarring from remote hemorrhoidectomy. The colon was noted to be quite tortuous. At that point I thought that his rectal bleeding was secondary to recurrent internal hemorrhoidal bleeding and offered him surgical follow-up at his discretion. Unfortunate the patient just lost his of 6 years from cancer couple 3 weeks ago. He is not regain normal bowel function intermittently constipated. He is living with his daughter. Because of ongoing problems with intermittent impaction and rectal bleeding he presents now for ongoing surgical consultation ROS General General: Yes weight change; No appetite, fatigue, colon cancer, breast cancer or weakness HEENT HEENT: No difficulty swallowing, eye injury, eye surgery, swollen glands or hoarseness Endo Endocrine: No thyroid disease, diabetes mellitus, thyroid cancer, Hair loss, heat intolerance or cold intolerance Skin Skin: No rash or changing moles Breast Breast: No left breast lump, right breast lump, nipple discharge, breast pain, abnormal mammogram, abnormal US or breast enlargement Musc Musculoskeletal: Yes back problems and arthritis; No rheumatoid arthritis, gout or joint pain Cardio Cardiovascular: No murmur, pacemaker, heart disease, atrial fibrillation, high blood pressure, heart attack, heart stent, palpitations, shortness of breat with exertion or chest pain Psych Psychiatric: Yes anxiety; No depression or hearing voices Resp Respiratory: No shortness of breath, No sleep apnea, No cough, No COPD, No asthma, No emphysema and No wheezing Gastro Gastrointestinal: No abdominal pain, No nausea or vomiting, No diarrhea, No constipation, Yes blood in stool, No acid reflux, No hemorrhoids, No ulcers, No gallbladder problem and No black,tarry stools Chet Hematologic: No blood thinners, No blood disorders, No bleeding, No anemia and No blood clots Neuro Neurologic: No system reviewed and no additional complaints, except as documented, No as per HPI, No abnormal gait, No abnormal hearing, No abnormal movements, No abnormal speech, No behavioral changes, No burning sensations, No confusion, No convulsions, No disequilibrium, No dizziness, No localized weakness, No frequent falls, No headache(s), No lack of coordination, No loss of vision, No memory loss, No numbness, No other visual disturbances, No radicular pain, No restless legs, No sensory deficit, No syncope, No tingling, No tremor(s), No weakness and No other Exam Const General: cooperative and no acute distress Nutritional Appearance: average body habitus Orientation: alert and awake [facility] Head: normal to inspection Eyes General: appearance normal, both eyes and all related structures Neck Neck: normal visual inspection Chest Chest palpation & inspection: normal inspection of the chest Resp Effort & Inspection: normal respiratory effort Auscultation: clear to auscultation bilaterally Cardio Rate: regular rate Rhythm: regular rhythm GI Palpation: soft and no hepatosplenomegaly Musc Cervical Spine: normal cervical lordosis Skin General: no rashes or lesions noted Neuro General: patient alert and patient oriented x3 Extrem General: no calf tenderness Psych Appearance: grossly normal Assessment and Plan Assessment and Plan (1) Internal bleeding hemorrhoids: Status: Acute Plan: I recommend to the patient a surgical hemorrhoidectomy. He has had a remote 1 performed in 1960s and we can repeat this procedure. With his daughter present I discussed technique, benefit, risk, alternatives. He is also wanting to have 3 different orthopedic procedures performed in the future. I believe that we should resolve the rectal bleeding and hemorrhoid issue first. I described the technique, benefit, risk, alternatives. He is aware of the potential for injury to the sphincter mechanisms. He has had an opportunity to ask and have questions answered. I have strongly recommended him that he vigorously increase concentration on his bowel regimen with fiber supplementation and daily fiber intake and MiraLAX as needed. He is aware that we do not want him to get chronically constipated and certainly do not want to get him impacted. I discussed some of the postoperative requirements as well including a short course of oral antibiotics. He has had an opportunity to ask and have questions answered. We will schedule and proceed at his discretion. I appreciate the ongoing opportunity of assisting with his surgical care. Copy: Dr. Pedro Kearney M.D., F.A.C.S Since the patient's office visit he did not notify the office or bring this to her attention that he has had a scaly dry rash perianally. He has tried [id number] hydrocortisone ointment and some type of other type of ointment without resolution. He has had no pain no drainage no bleeding. There is no pruritus. He just knows it is there because it is dry. He is continues to complain of intermittent prolapsing of his hemorrhoids that require manual reinsertion. We discussed treatment options of delaying the surgery and having him see dermatology though recognizing that that process could take several months to achieve. After discussion of options we have elected to proceed. We will provide the patient with IV Diflucan and IV metronidazole preprocedure. Plan to proceed with the multiple column hemorrhoidectomy. He is aware of the home- going instructions as well. Wilman Kearney M.D., F.A.C.S.
--- NOTE | 2023-07-24 14:04 | DCINST_ITS ---
Discharge Instructions Diet Discharge Diet: Light diet - advance as tolerated Activity Discharge Activity: May Shower and May Take a Tub Bath Lifting Restrictions: 10 pound weight lifting restriction Additional Activity Instructions:: May use warm water soapy sitz baths as needed for hygiene to keep cleansed and for comfort. Remove the Vaseline gauze tomorrow morning. Mineral oil 30 cc or 1 ounce in food or fluid daily for 1 week Metamucil or Citrucel or Benefiber or FiberCon a heaping tablespoon in water or juice daily Cgoa-zuf-ynhklpw pain medicine acetaminophen or Tylenol or ibuprofen Motrin can be utilized by themselves or alternating for comfort Avoid cheese or other constipating foods. Please contact the office at [phone] for an office appointment in 3 weeks Dressing / Incision Call your doctor if you observe: Fever of 101 or Higher Follow Up Care Test Results: Test results from this visit will be discussed in further detail at your follow- up appointment, if applicable. Discharge Plan Admission Attending Provider: Wilman Kearney Primary Care Provider: Pedro Alarcon Discharge Orders/Prescriptions Prescriptions: No Action multivitamin 1 EACH tablet 1 ea PO DAILY atorvastatin 40 MG tablet 40 mg PO QHS tamsulosin [Flomax] 0.4 mg Capsule 0.4 mg PO QHS Referrals / Follow Up: Pedro Alarcon MD [Primary Care Provider] - Disposition Disposition (needs filled in before D/C Order can be placed): Home, Self Care
[2023-07-24] MEDS: Cefotetan 2 GM in 0.9% NS 100 ML IV (14:12)
[2023-07-24] MEDS: Dibucaine 30 GM Tube 1 APPLIC (14:53)
[2023-07-24] MEDS: Bupivacaine Mpf 0.5% 30 ML VIAL (15:10)
[2023-07-24] MEDS: BUPIVACAINE LIPOSOME/PF 20 ML VIAL OPERA.SITE (15:10)
--- NOTE | 2023-07-24 15:10 | PCM.OPRPT ---
Report of Operation Date of Procedure: 07/24/23 Pre-Operative Diagnosis: Symptomatic prolapsing internal hemorrhoids Post-Operative Diagnosis: Same Surgery/Procedure Performed:: Multiple column hemorrhoidectomy Description of Surgical Findings:: Timeout informed consent was obtained. 83-year-old gentleman was taken to the operating placed prone on the table after undergoing general endotracheal ovation esthesia was placed in a prone jackknife position. Cefotetan 2 g were given tenderness free and Diflucan 200 mg were given intravenously. The perianal area was exposed with taping to the buttock. The perianal area was prepped with Betadine. Inspection revealed particularly right anterior and right posterior lateral and left mid lateral hemorrhoidal stalks. The right posterior lateral and the right anterior were excised by placing apical sutures of 0 Vicryl and then also apical sutures of 2-0 chromic using a harmonic scalpel to excise the combined external tags and internal hemorrhoids. Mucosa was then approximated with a running locking 2-0 chromic. On the left lateral side because of the smaller size of the anus I elected to simply hide ligate the internal hemorrhoidal stalk with 0 Vicryl and then imbricated with a running 2-0 chromic. Hemostasis was intact and blood loss minimal. Vaseline gauze soaked Dibucaine was inserted. The perianal area was copiously anesthetized with 0.5% Marcaine mixed 50-50 with Exparel. Cover dressings applied. Specimens were hemorrhoids. Drains none. Tolerated the procedure well was taken to the recovery room in satisfied condition. It is of pertinent note that during the procedure great care was taken to preserve mucosa were pertinent and to identify the sphincter mechanism and stay clear. Specimen hemorrhoids. Drains none. Blood loss minimal Wilman Kearney M.D., F.A.C.S. Surgeon: Wilman Kearney Type of Anesthesia: General and Local Anesthesiologist: Yolanda Jensen
== END 2023-07-24 20:02 | disposition home or self-care (01) ==
LOC: SDC 09:49 → AC 09:50
PROVIDERS: PCP Family Medicine; Referring Provider Surgery; Visit Provider Surgery
PROC: (CPT 46255; principal; 2023-07-24 11:45)
DX: K64.8 Other hemorrhoids (principal); K57.30 Diverticulosis of large intestine without perforation or abscess without bleeding; E78.5 Hyperlipidemia, unspecified; R91.1 Solitary pulmonary nodule; Z98.1 Arthrodesis status; Z96.611 Presence of right artificial shoulder joint; Z98.42 Cataract extraction status, left eye; Z98.41 Cataract extraction status, right eye; Z90.49 Acquired absence of other specified parts of digestive tract
CPT/HCPCS: 46255; 00902; 36415; 80048; 85027; 88304; 93005; J7120; J2405

== ENCOUNTER → 2024-08-13 | Outpatient (CLI) | payer MEDICARE, OTHER, SELFPAY | END | disposition home or self-care (01) | LOC: LABSPEC 11:00 | PROVIDERS: PCP Family Medicine; Referring Provider Surgery; Visit Provider Surgery | DX: Z01.818 Encounter for other preprocedural examination (principal); K42.9 Umbilical hernia without obstruction or gangrene | CPT/HCPCS: 87081 ==

== ENCOUNTER 2025-02-08 05:53 | Day surgery (SDC) | payer MEDICARE, OTHER, SELFPAY ==
--- NOTE | 2025-01-26 19:28 | PAT.ANESEVAL ---
Pre-Assessment Diagnosis/Proposed Procedure Planned Operative Procedure(s): Lap Robotic Umbilical Hernia w/mesh Anesthesia History Anesthesia History - surgical tech: Anesthesia History - surgical tech Hx Hospitalization No 01/25/25 08:13 Any Problems With Anesthesia No 01/25/25 08:13 Cholinesterase deficiency No 01/25/25 08:13 You/Your Family Experience No 01/25/25 08:13 fever (hyperthermia) with Relationship Recent Exposure to Contagious No 08/03/23 10:48 Disease Does patient have nerve No 01/25/25 08:13 stimulator Patient instructed to have device shut off --Does patient have Pacemaker or ICD? When Was Last Pacemaker Check QUESTION #4 FULL TEXT: You/Your Family Experience fever (hyperthermia) with Anesthesia Last Oral Intake Last Oral intake: Last Oral Intake NPO since Meds taken in AM with sips of water? Meds patient instructed to take am of surgery PONV PONV - surgical tech: PONV - surgical tech Female No 01/25/25 08:13 HX of Motion Sickness No 01/25/25 08:13 HX of N/V After Surgery No 01/25/25 08:13 Non-Smoker Yes 01/25/25 08:13 Duration of Surgery greater No 01/25/25 08:13 than 60 minutes Number of Risk Factors 1 01/25/25 08:13 PONV Score Low Risk 01/25/25 08:13 Height & Weight Height & Weight: Anesthesia: Height & Weight Height 5 ft 7 in 08/13/24 09:37 Respiratory Assessment Respiratory Assessment - surgical tech: Respiratory Tract Infection Hx - surgical tech Hx Respiratory Tract Infection No 01/25/25 08:13 STOP Sleep Apnea STOP Sleep Apnea - surgical tech: STOP Sleep Apnea - surgical tech Hx Hypertension No 01/25/25 08:13 Hx Sleep Apnea No 01/25/25 08:13 CPAP No 01/25/25 08:13 BIPAP Do you snore loudly (louder No 01/25/25 08:13 than talking or can be heard Do you often feel tired/ No 01/25/25 08:13 fatigued/ sleepy during daytime? Has anyone observed you stop No 01/25/25 08:13 breathing during sleep? STOP Results Negative 01/25/25 08:13 QUESTION #5 FULL TEXT : Do you snore loudly (louder than talking or can be heard through closed doors)? 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 Specify any problems Hx of Preganancy in last 3 N/A 01/25/25 08:13 Months Nurse Filling Out Transfusion VCHRISTIN 01/25/25 08:13 & Questions: Date: 01/25/25 01/25/25 08:13 Time: 08:14 01/25/25 08:13 Patient unable to answer at this time (ie. confused, unrespo /Reproduction History /Reproductive History - surgical tech: /Reproductive Hx- surgical tech Hx Now No 01/25/25 08:13 Gestational Age (in weeks): EDC: Hx Hx Para Hx Section SAB No 01/25/25 08:13 PFSH Medical History Psoriasis Loss of hearing Wears glasses Bladder disease Back pain Difficulty swallowing Heartburn Umbilical hernia Arthritis Internal bleeding hemorrhoids High cholesterol Non-smoker Syncope Cardiology follow-up encounter History of echocardiogram History of stress test Frequent PVCs Osteoarthritis Pulmonary nodule Hyperlipidemia Home Medications ?Medication ?Instructions ?Recorded ?Last Taken ?Type multivitamin 1 ea PO DAILY VITAMIN 02/25/19 07/23/23 History tamsulosin 0.4 mg capsule (Flomax) 0.4 mg PO QHS 02/15/23 07/23/23 History dupilumab 300 mg/2 mL subcutaneous 300 mg subcut QMONTH 01/25/25 01/25/25 History pen injector (Dupixent) triamcinolone acetonide 0.1 % 1 applic topical PRN 01/25/25 Unknown History topical cream Allergy/AdvReac Type Severity Reaction Status Date / Time acetaminophen (From Percocet) Allergy Intermediate Hives Verified 01/25/25 14:13 oxycodone (From Percocet) Allergy Intermediate Hives Verified 01/25/25 14:13 codeine Allergy Rash Verified 01/25/25 14:13 tramadol Allergy Hives Verified 01/25/25 14:13 Family History Brother Lung cancer Brother Diabetes Brother Diabetes Brother Hypertension Mother , in MVA Motor vehicle accident Father , of unknown cause No problems noted. Surgical History Hx of surgical procedure S/P hemorrhoidectomy Hx of right cataract extraction Hx of left cataract extraction Hx of colonoscopy Hx of total hip arthroplasty History of lumbar fusion History of left heart catheterization (06/03/19) History of right shoulder replacement (03/11/19) Social History Smoking Status: Never smoker Audit: Pertinent Findings Pertinent Findings EKG Perinent findings: January 15, 2024. Normal sinus rhythm. Incomplete right bundle branch block. Left anterior fascicular block. Stress test pertinent findings: January 23, 2024. No inducible ischemia. Ejection fraction 62%. Normal wall motion. Echo (EF%) pertinent findings: May 13, 2019. Ejection fraction 65%. Right ventricular systolic pressure is 33 mmHg. No aortic stenosis is noted. Recommendation Anesthesia Recommendation Anesthesia recommendation: OPTIMIZED for anesthesia
--- NOTE | 2025-01-29 11:16 | PAT.ANE_ITS ---
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 When Was Last Pacemaker Check QUESTION #4 FULL TEXT: You/Your Family Experience fever (hyperthermia) with Anesthesia Last Oral Intake Last Oral intake: Last Oral Intake NPO since Meds taken in AM with sips of water? Meds patient instructed to take am of surgery PONV PONV - internet marketing director: PONV - internet marketing director Female No 01/25/25 08:13 HX of Motion Sickness No 01/25/25 08:13 HX of N/V After Surgery No 01/25/25 08:13 Non-Smoker Yes 01/25/25 08:13 Duration of Surgery greater No 01/25/25 08:13 than 60 minutes Number of Risk Factors 1 01/25/25 08:13 PONV Score Low Risk 01/25/25 08:13 Height & Weight Height & Weight: Anesthesia: Height & Weight Height 5 ft 7 in 08/13/24 09:37 Respiratory Assessment Respiratory Assessment - internet marketing director: Respiratory Tract Infection Hx - internet marketing director Hx Respiratory Tract Infection No 01/25/25 08:13 STOP Sleep Apnea STOP Sleep Apnea - internet marketing director: STOP Sleep Apnea - internet marketing director Hx Hypertension No 01/25/25 08:13 Hx Sleep Apnea No 01/25/25 08:13 CPAP No 01/25/25 08:13 BIPAP Do you snore loudly (louder No 01/25/25 08:13 than talking or can be heard Do you often feel tired/ No 01/25/25 08:13 fatigued/ sleepy during daytime? Has anyone observed you stop No 01/25/25 08:13 breathing during sleep? STOP Results Negative 01/25/25 08:13 QUESTION #5 FULL TEXT : Do you snore loudly (louder than talking or can be heard through closed doors)? 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 Specify any problems Hx of Preganancy in last 3 N/A 01/25/25 08:13 Months Nurse Filling Out Transfusion VCHRISTIN 01/25/25 08:13 & Questions: Date: 01/25/25 01/25/25 08:13 Time: 08:14 01/25/25 08:13 Patient unable to answer at this time (ie. confused, unrespo /Reproduction History /Reproductive History - internet marketing director: /Reproductive Hx- internet marketing director Hx Now No 01/25/25 08:13 Gestational Age (in weeks): EDC: Hx Hx Para Hx Section SAB No 01/25/25 08:13 PFSH Medical History Psoriasis Loss of hearing Wears glasses Bladder disease Back pain Difficulty swallowing Heartburn Umbilical hernia Arthritis Internal bleeding hemorrhoids High cholesterol Non-smoker Syncope Cardiology follow-up encounter History of echocardiogram History of stress test Frequent PVCs Osteoarthritis Pulmonary nodule Hyperlipidemia Home Medications ?Medication ?Instructions ?Recorded ?Last Taken ?Type multivitamin 1 ea PO DAILY VITAMIN 07/23/23 History tamsulosin 0.4 mg capsule (Flomax) 0.4 mg PO QHS 02/1507/23/23 History dupilumab 300 mg/2 mL subcutaneous 300 mg subcut QMONT H 01/25/25 01/25/25 History pen injector (Dupixent) triamcinolone acetonide 0.1 % 1 applic topical PRN Unknown History topical cream Allergy/AdvReac Type Severity Reaction Status Date / Time acetaminophen (From Percocet) Allergy Intermediate Hives Verified 01/25/25 14:13 oxycodone (From Percocet) Allergy Intermediate Hives Verified 01/25/25 14:13 codeine Allergy Rash Verified 01/25/25 14:13 tramadol Allergy Hives Verified 01/25/25 14:13 Family History Brother Lung cancer Brother Diabetes Brother Diabetes Brother Hypertension Mother , in MVA Motor vehicle accident Father , of unknown cause No problems noted. Surgical History Hx of surgical procedure S/P hemorrhoidectomy Hx of right cataract extraction Hx of left cataract extraction Hx of colonoscopy Hx of total hip arthroplasty History of lumbar fusion History of left heart catheterization (06/03/19) History of right shoulder replacement (03/11/19) Social History Smoking Status: Never smoker Audit: Pertinent Findings HISTORY of Pertinent Findings History of Pertinent Findings: EKG Pertinent Findings EKG Perinent findings January 15, 2024. Normal 01/26/25 20:12 sinus rhythm. Incomplete right bundle branch block. Left anterior fascicular block. Stress Test Pertinent Findings Stress test pertinent findings January 23, 2024. No 01/26/25 20:13 inducible ischemia. Ejection fraction 62%. Normal wall motion. Echo Pertinent Findings Echo (EF%) pertinent findings May 13, 2019. Ejection 01/26/25 19:45 fraction 65%. Right ventricular systolic pressure is 33 mmHg. No aortic stenosis is noted. Pertinent Findings EKG Perinent findings: January 28, 2025. Sinus bradycardia. Left anterior fascicular block. Right bundle branch block. Heart rate has decreased by 30 bpm. Right bundle branch block is new compared to previous EKG in 2023. Recommendation Anesthesia Recommendation Anesthesia recommendation: OPTIMIZED for anesthesia
[2025-02-08] VITALS (12 sets, daily range): BP systolic 114–138; BP diastolic 56–80; PULSE 52–87; RESP 16–18; TEMP 36.3–36.8; O2SAT 93–99; BMI 24.7
[2025-02-08] MEDS: Lactated Ringers 1,000 ML 15 ML IV (06:42)
--- NOTE | 2025-02-08 07:13 | HP.PCM_ITS ---
History and Physical Date of Admission: 02/08/25 Date of Service: 01/25/25 MR#: [id number] Acct: [id number] Name: BREE COLLADO Rep #: [id number] : 1940 Provider: STIVEN Allen Age/Sex: 84/M Location: [facility] Status: Signed Intake Vital Signs 08/13/2409:37 01/25/2514:11 Height 5 ft 7 in 5 ft 7 in Weight: 153 lb 151 lb 8 oz BMI 23.9 23.7 BP 153/87 H 132/71 H Blood Pressure Location Rt brachial Rt brachial Position Sitting Sitting Respiration 18 18 Pulse 58 L 74 Pulse Source Monitor Monitor Temp 97.6 F L 97.5 F L Temp Source Temporal Temporal Pulse Oximetry (%) 96 99 Oxygen Delivery Method room air room air Intake Visit Reasons: UPDATE H&P- HERNIA WITH MB Chief Complaint: update H&P- umbilical hernia with MB Accompanied by: daughter and grandaughter Is patient in pain?: No Allergies acetaminophen (From Percocet) Allergy (Intermediate, Verified 01/25/25 14:13) Hivesoxycodone (From Percocet) Allergy (Intermediate, Verified 01/25/25 14:13) Hivescodeine Allergy (Verified 01/25/25 14:13) Rashtramadol Allergy (Verified 01/25/25 14:13) Hives Medications ?Medication ?Instructions ?Recorded ?Confirmed ?Type multivitamin 1 ea PO DAILY VITAMIN 02/25/19 01/25/25 History tamsulosin 0.4 mg capsule (Flomax) 0.4 mg PO QHS 02/15/23 01/25/25 History dupilumab 300 mg/2 mL subcutaneous 300 mg subcut QMONTH 01/25/25 01/25/25 History pen injector (Dupixent) triamcinolone acetonide 0.1 % 1 applic topical PRN 01/25/25 01/25/25 H istory topical cream Have you fallen in the past year?: No PFSH Medical History Psoriasis Loss of hearing Wears glasses Bladder disease Back pain Difficulty swallowing Heartburn Umbilical hernia Arthritis Internal bleeding hemorrhoids High cholesterol Non-smoker Syncope Cardiology follow-up encounter History of echocardiogram History of stress test Frequent PVCs Osteoarthritis Pulmonary nodule Hyperlipidemia Surgical History Hx of surgical procedure S/P hemorrhoidectomy Hx of right cataract extraction Hx of left cataract extraction Hx of colonoscopy Hx of total hip arthroplasty History of lumbar fusion History of left heart catheterization (06/03/19) History of right shoulder replacement (03/11/19) Family History Brother Lung cancerBrother DiabetesBrother DiabetesBrother HypertensionMother , in MVA Motor vehicle accidentFather , of unknown cause No problems noted. Social History Smoking Status: Never smoker HPI HPI Surgical H&P: Yes HPI: Patient is an 84 y/o M I am seeing for an update history and physical for an upcoming elective umbilical hernia repair. Patient denies any increased pain or discomfort at the umbilical hernia site. He remains very active. He denies any cardiac or pulmonary history. He was recently placed on Dupixent for eczema. His last injection was 2 weeks ago. He denies any complications or side effects from anesthesia. Patient's previous history per Dr. Noble's: Patient is a 84-year-old male, known to this practice as a former patient of Dr. Kearney is status post hemorrhoidectomy, who presents for surgical consultation related to an umbilical hernia. He presents today with his daughter. This finding was first noticed by patient several years ago. Patient is not, specifically, able to recall how this occurred, however, he suggests that it is likely due to his very active lifestyle. To this end he shares that he performs regular workouts?particularly of his extremities and works with weights range of 65 to 100 pounds. Just recently he was advised to stay away from abdominal workouts per his PCP given the presence of his umbilical hernia. His daughter shares that she is concerned something may happen during a workout if he does not have his hernia addressed. They also share that he has some stomach upset. Mr. Collado goes on to describe this as periods of constipation which he attributes to drinking too much coffee and minimal water. His daughter shares this leads to him not eating properly, but Mr. Collado states that he would do a protein shake instead of eating. He denies any associated nausea or heartburn. Instead he describes this as some low level discomfort. He reports a chronic history of constipation and bowel movement frequency of just 1 stool every couple of days. He denies any associated straining. He confirms that he is using supplemental fiber with Metamucil to help with this issue. Concerning the hernia, Mr. Robin retrobulbar endorses some growth but denies any pain. He also shares that it is cosmetically bothersome because he used to have a good-looking navel. Patient has no personal history of smoking. Patient has no personal history of recurrent cutaneous infections including staph. Pertinent surgical history includes: No history of abdominal surgery ROS General General: No weight change, appetite, fatigue, colon cancer, breast cancer or weakness HEENT HEENT: No difficulty swallowing, eye injury, eye surgery, swollen glands or hoarseness Endo Endocrine: No thyroid disease, diabetes mellitus, thyroid cancer, Hair loss, heat intolerance or cold intolerance Skin Skin: Yes rash; No changing moles Musc Musculoskeletal: No back problems, arthritis, rheumatoid arthritis, gout or joint pain Cardio Cardiovascular: No murmur, pacemaker, heart disease, atrial fibrillation, high blood pressure, heart attack, heart stent, palpitations, shortness of breath with exertion or chest pain Psych Psychiatric: No depression, anxiety or hearing voices Resp Respiratory: No shortness of breath, No sleep apnea, No cough, No COPD, No asthma, No emphysema and No wheezing Gastro Gastrointestinal: No abdominal pain, No nausea or vomiting, No diarrhea, Yes constipation, No blood in stool, No acid reflux, No hemorrhoids, No ulcers, No gallbladder problem and No black,tarry stools Chet Hematologic: No blood thinners, No blood disorders, No bleeding, No anemia and No blood clots Neuro Neurologic: No numbness, No tingling and No weakness Exam Const General: cooperative, healthy appearing and comfortable [facility] Head: normal to inspection Eyes General: appearance normal, both eyes and all related structures Neck Neck: normal visual inspection Neck mass: No Resp Effort & Inspection: normal respiratory effort Auscultation: clear to auscultation bilaterally Cardio Rate: regular rate Rhythm: regular rhythm GI Palpation: soft and hernia umbilical Auscultation: normal bowel sounds Musc Cervical Spine: normal cervical lordosis Skin General: no rashes or lesions noted Neuro General: no focal motor deficits and CN's II-XI intact bilaterally Extrem General: normal to inspection Psych Appearance: grossly normal Affect: normal affect Assessment and Plan Assessment and Plan (1) Umbilical hernia: Status: Chronic Qualifiers: Obstruction and gangrene presence: without obstruction or gangrene Qualified Code(s): K42.9 - Umbilical hernia without obstruction or gangrene Plan: Dr. Noble will plan to perform a robotic-assisted umbilical hernia repair with mesh. Procedure details, risks and benefits have been explained. Patient verbally understands and agrees with the plan. He will plan to pick a different site other than his abdomen for his next Dupixent injection. He is not on blood thinners or weight loss medication. Patient has had the opportunity to ask and have questions answered. I have examined the patient the following changes are noted: Patient states that he is cleared his rash noted at his interval update appointment. He otherwise has remained in good health. He denies any questions related to the procedure after a brief overview was given. I, additionally, reviewed postprocedure activity restrictions. Both he and his daughter confirm readiness to proceed. Having confirmed consents will not proceed the operating room for robotic umbilical hernia repair with mesh.
[2025-02-08] MEDS: Cefazolin 2 GM in 0.9% Normal Saline (100mL Bag) 100 ML IV (07:40)
--- NOTE | 2025-02-08 07:48 | PRE.ANES_ITS ---
ASA Classification* ASA Classification ASA Classification: 3 Assessment & Plan Anesthesia* Anesthesia Assessment Anesthesia Assessment: Discussed sedation and/or anesthesia options, risks, benefits, and alternatives with patient/parents/legal guardian/POA. Questions invited. The patient/parents/legal guardian/POA seems to understand and agrees to proceed with anesthesia plan. Reviewed the physical assessment, medical history, allergy history and patient home medications list prior to surgery/procedure/anesthetic and documented any changes. Performed airway and anesthesia risk assessments. Anesthesia Type Anesthesia Type: General History Source History Obtained from:: Patient and Chart Anesthesia Focused Assessment* Temperature: 98.2 F Pulse Rate: 66 Blood Pressure: 138/70 Respiratory Rate: 16 Pulse Ox: 97 Oxygen Delivery Method: Room Air Airway Assessment Mouth opens: >3 cm Mallampati Score: III Teeth Condition: Intact Neck Range of motion (ROM): Full ROM Focused Labs Anesthesia Preop lab: CBC WBC 9.9 K/mm3 (4.4-11.0) 07/16/23 13:21 07/16/23 RBC 4.06 M/mm3 (4.6-6.2) L 07/16/23 13:21 07/16/23 Hgb 13.7 g/dL (13.0-16.5) 07/16/23 13:21 07/16/23 Hct 41.8 % (40-54) 07/16/23 13:21 07/16/23 Plt Count 214 K/mm3 (150-450) 07/16/23 13:21 07/16/23 CHEMISTRY Potassium 4.0 mmol/L (3.5-5.1) 07/16/23 13:21 07/16/23 Sodium 140 mmol/L (136-145) 07/16/23 13:21 07/16/23 Magnesium 2.1 mg/dL (1.6-2.6) 05/13/19 13:52 05/13/19 BUN 24 mg/dL (7-18) H 07/16/23 13:21 07/16/23 Creatinine 1.16 mg/dL (0.70-1.30) 07/16/23 13:21 07/16/23 Glucose 104 mg/dL (74-106) 07/16/23 13:21 07/16/23 COAG Pre-Assessment Diagnosis/Proposed Procedure Planned Operative Procedure(s): Lap Robotic Umbilical Hernia w/mesh Anesthesia History Anesthesia History - administrator of home health: Anesthesia History - administrator of home health Hx Hospitalization No 01/25/25 08:13 Any Problems With Anesthesia No 01/25/25 08:13 Cholinesterase deficiency No 01/25/25 08:13 You/Your Family Experience No 01/25/25 08:13 fever (hyperthermia) with Relationship Recent Exposure to Contagious No 02/08/25 06:34 Disease Does patient have nerve No 01/25/25 08:13 stimulator Patient instructed to have device shut off --Does patient have Pacemaker No 02/08/25 06:34 or ICD? When Was Last Pacemaker Check QUESTION #4 FULL TEXT: You/Your Family Experience fever (hyperthermia) with Anesthesia Last Oral Intake Last Oral intake: Last Oral Intake NPO since Meds taken in AM with sips of water? Meds patient instructed to take am of surgery PONV PONV - administrator of home health: PONV - administrator of home health Female No 01/25/25 08:13 HX of Motion Sickness No 01/25/25 08:13 HX of N/V After Surgery No 01/25/25 08:13 Non-Smoker Yes 01/25/25 08:13 Duration of Surgery greater No 01/25/25 08:13 than 60 minutes Number of Risk Factors 1 01/25/25 08:13 PONV Score Low Risk 01/25/25 08:13 Height & Weight Height & Weight: Anesthesia: Height & Weight Height 5 ft 5 in 02/08/25 06:34 Weight: 67.6 kg 02/08/25 06:34 Body Mass Index (BMI) 24.7 02/08/25 06:34 Respiratory Assessment Respiratory Assessment - administrator of home health: Respiratory Tract Infection Hx - administrator of home health Hx Respiratory Tract Infection No 01/25/25 08:13 STOP Sleep Apnea STOP Sleep Apnea - administrator of home health: STOP Sleep Apnea - administrator of home health Hx Hypertension No 01/25/25 08:13 Hx Sleep Apnea No 01/25/25 08:13 CPAP No 01/25/25 08:13 BIPAP Do you snore loudly (louder No 01/25/25 08:13 than talking or can be heard Do you often feel tired/ No 01/25/25 08:13 fatigued/ sleepy during daytime? Has anyone observed you stop No 01/25/25 08:13 breathing during sleep? STOP Results Negative 01/25/25 08:13 QUESTION #5 FULL TEXT : Do you snore loudly (louder than talking or can be heard through closed doors)? 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 Specify any problems Hx of Preganancy in last 3 N/A 01/25/25 08:13 Months Nurse Filling Out Transfusion VCHRISTIN 01/25/25 08:13 & Questions: Date: 01/25/25 01/25/25 08:13 Time: 08:14 01/25/25 08:13 Patient unable to answer at this time (ie. confused, unrespo /Reproduction History /Reproductive History - administrator of home health: /Reproductive Hx- administrator of home health Hx Now No 01/25/25 08:13 Gestational Age (in weeks): EDC: Hx Hx Para Hx Section SAB No 01/25/25 08:13 Active Medications Active Medications: Current Medications Generic Name Dose Route Start Last Admin Trade Name Freq PRN Reason Stop Dose Admin Cefazolin Sodium 2 gm/ Sodium 110 mls @ 150 mls/hr 02/08/25 07:30 Chloride IV 02/08/25 08:13 INTRAOP ONE Lactated Ringer's 1,000 mls @ 15 mls/hr 02/08/25 06:15 02/08/25 06:42 IV 15 mls/hr .Q48H GENARO Administration PFSH Medical History Psoriasis Loss of hearing Wears glasses Bladder disease Back pain Difficulty swallowing Heartburn Umbilical hernia Arthritis Internal bleeding hemorrhoids High cholesterol Non-smoker Syncope Cardiology follow-up encounter History of echocardiogram History of stress test Frequent PVCs Osteoarthritis Pulmonary nodule Hyperlipidemia Home Medications ?Medication ?Instructions ?Recorded ?Last Taken ?Type multivitamin 1 ea PO DAILY VITAMIN 07/23/23 History tamsulosin 0.4 mg capsule (Flomax) 0.4 mg PO QHS 02/1502/07/25 History dupilumab 300 mg/2 mL subcutaneous 300 mg subcut QMONT H 01/25/25 01/25/25 History pen injector (Dupixent) triamcinolone acetonide 0.1 % 1 applic topical PRN Unknown History topical cream Allergy/AdvReac Type Severity Reaction Status Date / Time acetaminophen (From Percocet) Allergy Intermediate Hives Verified 02/08/25 06:32 oxycodone (From Percocet) Allergy Intermediate Hives Verified 02/08/25 06:32 codeine Allergy Rash Verified 02/08/25 06:32 tramadol Allergy Hives Verified 02/08/25 06:32 Family History Brother Lung cancer Brother Diabetes Brother Diabetes Brother Hypertension Mother , in MVA Motor vehicle accident Father , of unknown cause No problems noted. Surgical History Hx of surgical procedure S/P hemorrhoidectomy Hx of right cataract extraction Hx of left cataract extraction Hx of colonoscopy Hx of total hip arthroplasty History of lumbar fusion History of left heart catheterization (06/03/19) History of right shoulder replacement (03/11/19) Social History Smoking Status: Never smoker Review of Systems (Anesthesia) ROS Narrative System reviewed and no additional complaints, except as documented.
[2025-02-08] MEDS: Bupivacaine 0.25% 30 ML Vial (07:55)
[2025-02-08] MEDS: 0.9% Normal Saline (Pres. free 10 ML Vial (07:55)
[2025-02-08] MEDS: BUPIVACAINE LIPOSOME/PF 20 ML VIAL OPERA.SITE (07:55)
--- NOTE | 2025-02-08 10:53 | PCM.OPRPT ---
Operative Report (Standard) Operative Information Date of Procedure: 02/08/25 Pre-Operative Diagnosis: Nonincarcerated umbilical hernia (3 cm fascial defect) Post-Operative Diagnosis: Same Surgery/Procedure Performed: Robot-assisted transabdominal preperitoneal repair of umbilical hernia with mesh radio installer automobile: Yes Computer Salesperson Retail: Gladis Nolasco Tasks completed by speech language pathology assistant: Opening & closing and Other (Installation of tap block) Type of Anesthesia: General/Supplemental RN Documented Start/Stop Times: Operation Date: 02/08/25 07:30 Case Time Into Pre-Op 02/08/25 06:01 Out of Pre-Op 02/08/25 07:27 Anesthesia Start 02/08/25 07:30 Into Room 02/08/25 07:30 Procedure Start 02/08/25 07:53 Procedure End 02/08/25 11:00 Anesthesia End 02/08/25 11:07 Out of Room 02/08/25 11:07 Into Recovery 02/08/25 11:10 Into Phase II Recovery 02/08/25 12:58 Out of Recovery 02/08/25 12:58 Procedure Start Time: 07:53 Procedure Stop Time: 11:07 Select all DRAINS/GRAFTS/IMPLANTS that apply: Implanted device (Ventralight ST mesh 10 x 15 cm) Implanted device details: Reference [id number], lot [id number] Estimated Blood Loss: 15 Specimen collected: No Description of surgery: After appropriate identification in the preoperative holding area, the patient was brought to the operating room suite where he was positioned supine the operating table. Preoperative antibiotics were administered. Patient was then induced with a general anesthetic. Patient's abdomen was prepped and draped in the usual sterile fashion. Meanwhile anesthesia placed an orogastric tube. A formal timeout followed to confirm patient and procedure. Procedure was begun with a Veress entry at Richardson's point. Once the set point pressure was reached, this Veress needle was exchanged for an optical trocar and an optical entry was made in this location. Laparoscopic investigation revealed no inadvertent injury to the viscera below. Two additional 8 mm robotic trocars were placed along the abdominal wall laterally taking care to avoid the bony prominences of the costal margin and the ASIS. A transversus abdominis plane block was created with 70 mL of a mixture of Exparel, saline and Marcaine (14 mL Exparel, 14 mL saline, 42 mL quarter percent Marcaine) under laparoscopic vision as these ports were placed. The robot was then brought in and docked in standard fashion. Robotically a peritoneal flap was raised approximately 2 cm medial from my trocars and carried this away towards the contralateral abdominal wall. Unfortunately despite great care being taken to avoid rents in the flap, the attenuated peritoneum tore multiple locations and this approach was initially abandoned. I decided to then enter the same plane more medially where there was grossly evident preperitoneal fat and thereby expose the posterior rectus sheath in order to provide flatter apposition of our mesh to the anterior abdominal wall following fascial closure. Once again, great care was taken to lower the peritoneum off of the posterior rectus sheath and avoid any rents in the peritoneal flap. Perforating vessels were sealed with bipolar energy to maintain hemostasis as this flap dissection proceeded. I then addressed the hernia directly by opening the scar tissue about the hernia sac and carefully applying manual traction downward until the preperitoneal fat within the hernia was fully reduced. Noting the potential for eventual peritoneal flap closure over mesh, the inferior flap was maintained intact and the flap was then further dissected laterally until it appeared we had adequate width. The hernia defect was measured at approximately 3 cm round. This hernia defect was closed with a #1 stratafix suture by running the fascial defect closed and then running the suture back upon itself. Next a 10 x 15 cm Ventralight mesh was introduced into the peritoneum and a 3-0 V-Loc suture was used to chandelier the mesh. This V-Loc suture was then run towards the operating side of the opening and approximation was temporarily suspended until I was able to use a 3-0 Vicryl suture to tack the mesh in the remaining 3 directions to establish orientation. This suture was then used to approximate the circumference of the mesh to the anterior abdominal wall. The final result was a nicely apposed mesh to the anterior abdominal wall without wrinkle. A 3-0 V-Loc suture was used to close the remaining peritoneal defect in a running fashion. In the midpoint of this closure the peritoneal lining was exceptionally attenuated and some mesh was exposed. Here I used a 3-0 Vicryl suture to tack the hernia defect over this area and thereby reinforce the closure. Presuming we were now complete a needle count was performed but we remained 1 needle short of the expected total. It quickly became apparent that the needle remained beneath the flap from the mesh perimeter approximation. Given the tenuous closure of the peritoneum just completed I elected to use my scissor and open the peritoneal flap on the contralateral aspect inferiorly where I guess the remaining needle to persist. Fortunately through this limited (approximately 3 cm) incision I was able to visualize the remaining needle and retrieved it from the underside of the mesh to the passed off the field for our correct case count. The remaining peritoneal defect was then closed in a running fashion with a new 3 OV lock suture. The robot was then undocked and the trocars were removed. Additional local anesthetic was instilled and the port sites were closed with interrupted 4-0 Monocryl in subcuticular fashion. Steri-Strips and OpSite dressings were applied. Patient was transferred to PACU for ongoing care. Surgical Findings: ? 3 cm umbilical defect with mild diastases superiorly ? Exceptionally attenuated peritoneum laterally Complications Complications: No Admit VTE Documentation VTE Mechan Device Prophylaxis: SCD's
--- NOTE | 2025-02-08 10:56 | DCINST_ITS ---
Discharge Instructions Diet Discharge Diet: No restrictions Activity Discharge Activity: May Not Drive (While taking narcotic pain medication) and May Shower May shower in (days): 2 Ice area for (Minutes): 20 Lifting Restrictions: No lifting greater than 10 pounds for the next 5 weeks Dressing / Incision Call your doctor if your incision/area has: Continuous Slow Oozing, Increased Pain/ Swelling, Increased Redness, Foul Smelling Discharge and Swelling at the incision site Call your doctor if you observe: Fever of 101 or Higher, Inability to urinate and Inability to have a bowel movement Change Dressing in: 2 days (Please leave Steri-Strips intact until they fall off spontaneously or are taken off at your follow-up visit) Remove Dressing in: 2 days Cleanse incision/area with: Soap & Water and Keep Dressing Clean & Dry Follow Up Care Please Follow Up With: Jair Noble MD When: 1 week postop Test Results: Test results from this visit will be discussed in further detail at your follow- up appointment, if applicable. Discharge Plan Admission Primary Reason for Your Visit: Umbilical hernia repair Attending Provider: Jair Noble Primary Care Provider: Pedro Alarcon Instructions Print Language: Indonesian Discharge Orders/Prescriptions Prescriptions: New oxycodone 5 mg tablet 5 mg PO Q6H PRN (Reason: pain) 3 Days Qty: 10 0RF Continued multivitamin 1 EACH tablet 1 ea PO DAILY tamsulosin [Flomax] 0.4 mg Capsule 0.4 mg PO QHS Dupixent Pen 300 mg/2 mL pen injector 300 mg subcut QMONTH triamcinolone acetonide 0.1 % cream 1 applic topical PRN Referrals / Follow Up: Pedro Alarcon MD [Primary Care Provider] - Disposition Disposition (needs filled in before D/C Order can be placed): Home, Self Care
--- NOTE | 2025-02-08 11:15 | PCM.POST.ANE ---
Anesthesia: Postop Eval I Current Vital Signs Temperature: 97.4 F Pulse Rate: 84 Blood Pressure: 134/80 Respiratory Rate: 16 Pulse Ox: 99 Oxygen Delivery Method: Simple Mask Oxygen Flow Rate (L/min): 6 Assessment Airway patent: Yes Spontaneous unlabored respirations: Yes Mental status: Awake and Calm nausea: No Vomiting: No Anesthesia Complication: No Fluid Hydration Crystalloid volume administer (ml): 1,600 Total IV fluid infused: 1,600 Progress Note Anesthesia document: Postop Eval 1 completed: Yes
--- NOTE | 2025-02-08 13:30 | POSTOPAN2_ITS ---
Anesthesia Postop Eval I Sum Postop Eval Completion status Anesthesia document: Postop Eval 1 completed: Yes Anesthesia Postop Eval I Summary Anesthesia Postop Eval I Summary: Anesthesia Postop Eval I: Assessment Summary Airway patent Yes 02/08/25 11:15 COLLEGE ADVISOR.SKOBY Spontaneous unlabored Yes 02/08/25 11:15 COLLEGE ADVISOR.EDUARDOOBElías respirations Mental status Awake,Calm 02/08/25 11:15 COLLEGE ADVISOR.SKOBY nausea No 02/08/25 11:15 COLLEGE ADVISOR.SKOBY Vomiting No 02/08/25 11:15 COLLEGE ADVISOR.SKOBY Anesthesia Postop Eval I: Fluid Summary Crystalloid volume administer 1,600 02/08/25 11:15 COLLEGE ADVISOR.SKOBY (ml) Colloids volume administered ( ml) Blood Product volume administered (ml) Total IV fluid infused 1,600 02/08/25 11:15 COLLEGE ADVISOR.EDUARDOOBElías Anesthesia Postop Eval I: Summary Notes Anesthesia Complication No 02/08/25 11:15 COLLEGE ADVISOR.EDUARDOOBElías Anesthesia Complication Comment: Post-operative progress note Anesthesia: Postop Eval II Evaluation Mental status: Awake Pain Level: 0 nausea: No Vomiting: No Complications Anesthesia Complication: No
--- NOTE | 2025-02-08 13:30 | PCM.POSTANE2 ---
Anesthesia Postop Eval I Sum Postop Eval Completion status Anesthesia document: Postop Eval 1 completed: Yes Anesthesia Postop Eval I Summary Anesthesia Postop Eval I Summary: Anesthesia Postop Eval I: Assessment Summary Airway patent Yes 02/08/25 11:15 HIGH ENERGY FORMING EQUIPMENT OPERATOR.SKOBY Spontaneous unlabored Yes 02/08/25 11:15 HIGH ENERGY FORMING EQUIPMENT OPERATOR.EDUARDOOBElías respirations Mental status Awake,Calm 02/08/25 11:15 HIGH ENERGY FORMING EQUIPMENT OPERATOR.SKOBY nausea No 02/08/25 11:15 HIGH ENERGY FORMING EQUIPMENT OPERATOR.SKOBY Vomiting No 02/08/25 11:15 HIGH ENERGY FORMING EQUIPMENT OPERATOR.SKOBY Anesthesia Postop Eval I: Fluid Summary Crystalloid volume administer 1,600 02/08/25 11:15 HIGH ENERGY FORMING EQUIPMENT OPERATOR.SKOBY (ml) Colloids volume administered ( ml) Blood Product volume administered (ml) Total IV fluid infused 1,600 02/08/25 11:15 HIGH ENERGY FORMING EQUIPMENT OPERATOR.EDUARDOOBElías Anesthesia Postop Eval I: Summary Notes Anesthesia Complication No 02/08/25 11:15 HIGH ENERGY FORMING EQUIPMENT OPERATOR.EDUARDOOBElías Anesthesia Complication Comment: Post-operative progress note Anesthesia: Postop Eval II Evaluation Mental status: Awake Pain Level: 0 nausea: No Vomiting: No Complications Anesthesia Complication: No
[2025-02-08] MEDS: Acetaminophen 500 MG Tablet 1000 MG PO (14:10)
== END 2025-02-08 15:35 | disposition home or self-care (01) ==
LOC: SDC 05:54 → AC 05:54
PROVIDERS: PCP Family Medicine; Referring Provider Surgery; Visit Provider Surgery
PROC: (CPT 49593; principal; 2025-02-08 07:10)
DX: K42.9 Umbilical hernia without obstruction or gangrene (principal)
CPT/HCPCS: 49593; S2900; 00750; 93005; C1781; J0666; J2405